=== PATIENT | female | born 1945 | race Caucasian/White ===

== ENCOUNTER 2016-10-08 04:56 | Emergency (ER) | payer BC ==
[2016-10-08 05:18] VITALS: TEMP 97.3; BMI 31.8
[2016-10-08] MEDS ORDERED: AMOX TR/POT CLAV 875MG/125MG TABLETS (FP) PO ONE (05:45)
[2016-10-08] MEDS ORDERED: MECLIZINE HCL 25 MG TABLET (FP) PO ONE (05:45)
--- NOTE | 2016-10-08 05:48 | PDOC ---
History of Present Illness - General Chief Complaint: Nausea Stated Complaint: NAUSEA/DIZZINESS Time Seen by Provider: 10/08/16 05:20 - History of Present Illness Initial Comments: 10/08/16 05:54 Patient is a 71 year old female with a history of HTN, HLD, and hypothyroidism who presents with a chief complaint of nausea and dizziness. The patient reports that she woke up 1 hour ago in a cold sweat with the room spinning around herself. She attempted to make her way to the bathroom, but had to crawl due to the room spinning and her nausea at which time she called EMS to present to the ED today. She states that she has never had anything like this before. She notes that her left ear has been feeling full since she got some excess water in it and has been having a ringing sensation in the left ear since earlier this morning. She denies any fevers, chills, chest pain, SOB, weakness or vision changes. Past History - Past Medical History Allergies/Adverse Reactions: Allergies Allergy/AdvReac Type Severity Reaction Status Date / Time No Known Allergies Allergy Verified 10/08/16 05:25 Home Medications: Ambulatory Orders Amox-Tr/K Cl [Augmentin - 875Mg Tablet] 1 tab PO BID #14 tablet 10/08/16 - Psycho/Social/Smoking Cessation Hx Suicidal Ideation: No Smoking History: Current every day smoker Have you smoked in the past 12 months: Yes Number of Cigarettes Smoked Daily: 12 Information on smoking cessation initiated: No Hx Alcohol Use: No Drug/Substance Use Hx: No Review of Systems - Review of Systems Constitutional: No: Chills, Fever HEENTM: Yes: Tinnitus. No: Recent change in vision, Ear Discharge, Hearing Loss Respiratory: No: Cough, Shortness of Breath Cardiac (ROS): No: Chest Pain, Lightheadedness ABD/GI: Yes: Nausea. No: Constipated, Diarrhea, Vomiting : No: Dysuria Integumentary: No: Rash Neurological: No: Headache, Numbness, Tingling, Weakness *Physical Exam - Vital Signs Last Vital Signs Temp Pulse Resp BP Pulse Ox 97.3 F L 59 L 18 127/67 97 10/08/16 05:11 10/08/16 05:11 10/08/16 05:11 10/08/16 05:11 10/08/16 05:11 - Physical Exam Comments: 10/08/16 06:01 General Appearance: Nourished. No Apparent Distress HEENT: EOMI, SHAN, Slightly bulging left TM with dull light reflex. Normal right TM No Pharyngeal Erythema, Tonsillar Exudate, Tonsillar Erythema Respiratory/Chest: Lungs Clear, Normal Breath Sounds. No Crackles, Rales, Rhonchi, Wheezing Cardiovascular: Regular Rhythm, Regular Rate. No Murmur, Gallop/S3, Gallop/S4 Gastrointestinal/Abdominal: Normal Bowel Sounds, Soft. No Guarding, Rebound, Tenderness Extremity: Normal Capillary Refill Integumentary: Normal Color, Dry, Warm Neurologic: inspector electromechanical II-XII NML intact, Fully Oriented, Alert, Normal Mood/Affect, Normal Response, Finger to Nose ED Treatment Course - LABORATORY CBC & Chemistry Diagram: 10/08/16 06:00 10/08/16 07:20 Medical Decision Making - Medical Decision Making 10/08/16 06:02 Patient is a 71 year old female who presents with dizziness and nausea. Given her history and physical exam, her symptoms seem most consistent with left otitis media causing a peripheral vertigo. The patient's symptoms were sudden onset and have resolved here in the ED which is more consistent with a peripheral vertigo as the cause of her dizziness and nausea. We will obtain a cbc, bmp, and cardiac enzymes to evaluate for any metabolic abnormalities or ACS as the cause of her nausea and dizziness. We will treat her with meclazine and a dose of Augmentin as well as zofran and reevaluate. 10/08/16 06:54 Patient signed out to Dr. Rosas. Pending laboratory results. *DC/Admit/Observation/Transfer Diagnosis at time of Disposition: Otitis media Qualifiers: Otitis media type: unspecified Chronicity: unspecified Laterality: unspecified laterality Qualified Code(s): H66.90 - Otitis media, unspecified, unspecified ear - Discharge Dispostion Disposition: HOME Condition at time of disposition: Improved - Prescriptions Prescriptions: Amox-Tr/K Cl [Augmentin - 875Mg Tablet] 1 tab PO BID #14 tablet - Referrals Referrals: Theodore Tapia MD [Primary Care Provider] - - Patient Instructions Printed Discharge Instructions: Middle Ear Infection Additional Instructions: You were seen because you had an issue with your balance. We saw that you have a slight infection of your right ear that we have given you antibiotics for. Again, this infection is in your middle ear and flushing your ear will not help. Please follow up with your primary care physician within a week or two. Please return to the ED if your ears do not get better in a few days or you get fevers, chills, reddening of your ears, fluid draining from your ears, or other concerning symptoms. - Attestations Physician Attestion: 10/10/16 06:53 I, Dr. Warren Eli, attest that this document has been prepared under my direction and personally reviewed by me in its entirety. I further attest, that it accurately reflects all work, treatment, procedures and medical decision -making performed by me.
[2016-10-08] MEDS ORDERED: ONDANSETRON 4 MG/2 ML VIAL IVPUSH ONE (05:50)
--- NOTE | 2016-10-08 05:50 | PDOC ---
Attending Attestation - Resident Resident Name: Warren Eli - ED Attending Attestation I have performed the following: I have examined & evaluated the patient, The case was reviewed & discussed with the resident, I agree w/resident's findings & plan, Exceptions are as noted - HPI HPI: 10/08/16 05:48 Agree with the resident's HPI as documented in the electronic medical record. - Physicial Exam PE: 10/08/16 05:48 Agree with the resident's physical examination as documented in the electronic medical record. - Medical Decision Making 10/08/16 05:48 71-year-old female with history of and hypothyroid disease presents to the emergency department with acute onset of nausea and vertiginous symptoms as well as tinnitus in the left ear; she reports getting water in her left ear a few days ago. Her left TM appears to be dull and bulging. Differential diagnosis includes but is not limited to: Acute otitis media, peripheral vertigo , vasovagal response, ACS, electrolyte abnormality, toxic/metabolic derangement. Plan: 1. EKGshows sinus bradycardia with first-degree AV block and no acute ST segment changes. 2. Labs 3. Symptomatic relief with meclizine 4. Antiemetics 5. Augmentin for otitis media 6. Observe and reevaluate
[2016-10-08] MEDS ORDERED: AMOX TR/POT CLAV 875MG/125MG TABLETS (FP) ONE (05:51)
[2016-10-08] MEDS ORDERED: MECLIZINE HCL 25 MG TABLET (FP) ONE (05:51)
[2016-10-08] MEDS ORDERED: ONDANSETRON 4 MG/2 ML VIAL ONE (05:52)
[2016-10-08 06:22] LABS: BASOPHIL 0.6 % (0-2.0); EOSINOPHIL 2.1 % (0-4.5); MCH 29.8 pg (25.7-33.7); MCHC 33.2 g/dl (32.0-36.0); MEAN CELL VOLUME 89.8 fl (80-96); MEAN PLT VOLUME 8.7 fl (7.5-11.1); NEUTROPHILS 72.6 % (42.8-82.8); PLATELET COUNT 283 K/MM3 (134-434); RDW 13.1 % (11.6-15.6); WHITE BLOOD COUNT 11.3 K/mm3 (4.0-10.0)
--- NOTE | 2016-10-08 07:23 | PDOC ---
*Physical Exam - Vital Signs Last Vital Signs Temp Pulse Resp BP Pulse Ox 97.3 F L 56 L 18 127/67 100 10/08/16 05:11 10/08/16 05:18 10/08/16 05:11 10/08/16 05:11 10/08/16 05:18 ED Treatment Course - LABORATORY CBC & Chemistry Diagram: 10/08/16 06:00 10/08/16 07:20 - ADDITIONAL ORDERS Additional order review: Laboratory Results 10/08/16 10/08/16 06:00 06:00 Sodium Cancelled Potassium Cancelled Chloride Cancelled Carbon Dioxide Cancelled Anion Gap Cancelled BUN Cancelled Creatinine Cancelled Random Glucose Cancelled Calcium Cancelled Phosphorus Cancelled Magnesium Cancelled Creatine Kinase Cancelled Troponin I Cancelled 10/08/16 06:00 RBC 4.80 MCV 89.8 MCHC 33.2 RDW 13.1 MPV 8.7 Neutrophils % 72.6 Lymphocytes % 17.7 Monocytes % 7.0 Eosinophils % 2.1 Basophils % 0.6 - Medications Given in the ED: ED Medications Discontinued Medications Generic Name Dose Route Start Last Admin Trade Name Mathewq PRN Reason Stop Dose Admin Amoxicillin/Clavulanate Potassium 1 tab 10/08/16 05:45 10/08/16 06:06 Augmentin - 875mg Tablet PO 10/08/16 05:46 1 tab ONCE ONE Administration Meclizine HCl 50 mg 10/08/16 05:45 10/08/16 06:06 Antivert - PO 10/08/16 05:46 50 mg ONCE ONE Administration Ondansetron HCl 4 mg 10/08/16 05:50 10/08/16 06:06 Zofran Injection IVPUSH 10/08/16 05:51 4 mg ONCE ONE Administration Medical Decision Making - Medical Decision Making Patient signed out to me in an efficient manner by Dr. Eli in a stable disposition with expected discharge home pending any abnormal lab values. She has received a dose of Augmentin, Meclizine, and Zofran with good symptomatic relief. 10/08/16 07:19 10/08/16 08:44 Labs only significant for a slight WBC to 11.3 but patient is afebrile with other VSS. We will discharge her on Augmentin 875 BID for 7 days. 10/08/16 08:45 10/08/16 08:49 *DC/Admit/Observation/Transfer Diagnosis at time of Disposition: Otitis media - Discharge Dispostion Disposition: HOME Condition at time of disposition: Improved Admit: No - Prescriptions Prescriptions: Amox-Tr/K Cl [Augmentin - 875Mg Tablet] 1 tab PO BID #14 tablet - Referrals Referrals: Theodore Tapia MD [Primary Care Provider] - - Patient Instructions Printed Discharge Instructions: Middle Ear Infection Additional Instructions: You were seen because you had an issue with your balance. We saw that you have a slight infection of your right ear that we have given you antibiotics for. Again, this infection is in your middle ear and flushing your ear will not help. Please follow up with your primary care physician within a week or two. Please return to the ED if your ears do not get better in a few days or you get fevers, chills, reddening of your ears, fluid draining from your ears, or other concerning symptoms.
[2016-10-08 07:26] VITALS: PULSE 70
[2016-10-08 07:44] VITALS: BP 142/74
[2016-10-08 08:19] LABS: ANION GAP 6 (8-16); CALCIUM 8.8 mg/dL (8.5-10.1); CO2 26 mmol/L (21-32); CREATININE 0.8 mg/dL (0.55-1.02); GLUCOSE,RANDOM 101 mg/dL (74-106); MAGNESIUM 2.2 mg/dL (1.8-2.4)
[2016-10-08 08:23] LABS: CPK 81 IU/L (26-192); TROPONIN I 0.02 ng/ml (0.00-0.05)
--- NOTE | 2016-10-08 12:19 | EKG ---
Test Reason : Blood Pressure : / mmHG Vent. Rate : 055 BPM Atrial Rate : 055 BPM P-R Int : 230 ms QRS Dur : 094 ms QT Int : 460 ms P-R-T Axes : 055 021 048 degrees QTc Int : 440 ms SINUS BRADYCARDIA WITH FIRSTDEGREE AV BLOCK LEFT ARTIAL ABNORMALITY NO PREVIOUS ECGS AVAILABLE CLINICAL CORRELATION IS RECOMMENDED Confirmed by GELY WEINBERG MD ([id number]) on 10/08/2016 12:19:20 PM Referred By: Confirmed By:GELY WEINBERG MD
== END 2016-10-08 09:19 | disposition home or self-care (01) ==
LOC: JER 04:56
PROC: 3E033GC Introduction of Other Therapeutic Substance into Peripheral Vein, Percutaneous Approach (ICD-10-PCS; principal; 2016-10-08)
DX: H81.392 Other peripheral vertigo, left ear (principal); H66.92 Otitis media, unspecified, left ear; I10 Essential (primary) hypertension; E03.9 Hypothyroidism, unspecified; E78.00 Pure hypercholesterolemia, unspecified; F17.210 Nicotine dependence, cigarettes, uncomplicated
CPT/HCPCS: 36415; 80048; 83735; 84100; 84484; 85025; 93005; 93010; 99285-25

== ENCOUNTER 2016-12-05 08:07 | Observation (INO) | payer BC ==
--- NOTE | 2016-12-05 08:43 | PDOC ---
History of Present Illness - General Chief Complaint: Diarrhea Stated Complaint: DIARRHEA (PCP SENT) Time Seen by Provider: 12/05/16 08:41 - History of Present Illness Initial Comments: 12/05/16 08:43 Ms. Alcocer is a 71 yo female with a significant past medical history of HTN who presents to the emergency department on advice of PCP for admission for suspected c. diff. Per patient she has had 4 weeks of diarrhea - her PCP had proscribed flagyl without relief of symptoms. Ms. Alcocer says that she has had watery or loose diarrhea on and off over this time period without any other symptoms. The patient denies chest pain, shortness of breath, headache and dizziness. Denies fever, chills, nausea, vomit, and constipation. Denies dysuria, frequency , urgency and hematuria. Allergies: NKDA Past surgical history: Left ovarian cyst removal Social history: 50 pack year smoking history PMD - Theodore Tapia Past History - Past Medical History Allergies/Adverse Reactions: Allergies Allergy/AdvReac Type Severity Reaction Status Date / Time No Known Allergies Allergy Verified 12/05/16 08:27 Home Medications: Ambulatory Orders Fenofibrate Nanocrystallized [Triglide] 160 mg PO DAILY 12/05/16 Levothyroxine [Synthroid -] 150 mcg PO DAILY 12/05/16 Lisinopril/Hydrochlorothiazide [Lisinopril-Hctz 10-12.5 mg Tab] 1 each PO DAILY 12/05/16 Metoprolol Succinate [Toprol Xl -] 50 mg PO DAILY 12/05/16 HTN: Yes Thyroid Disease: Yes - Immunization History Immunization Up to Date: Yes - Suicide/Smoking/Psychosocial Hx Smoking History: Current every day smoker Have you smoked in the past 12 months: Yes Number of Cigarettes Smoked Daily: 20 Information on smoking cessation initiated: No Hx Alcohol Use: No Drug/Substance Use Hx: No Review of Systems - Review of Systems Comments:: 12/05/16 08:43 GENERAL/CONSTITUTIONAL: No fever or chills. No weakness. HEAD, EYES, EARS, NOSE AND THROAT: No change in vision. No ear pain or discharge. No sore throat. CARDIOVASCULAR: No chest pain or shortness of breath RESPIRATORY: No cough, wheezing, or hemoptysis. GASTROINTESTINAL: +4 week history of intermittent loose and watery stools. No nausea, vomiting, or constipation. GENITOURINARY: No dysuria, frequency, or change in urination. MUSCULOSKELETAL: No joint or muscle swelling or pain. No neck or back pain. SKIN: No rash NEUROLOGIC: No headache, vertigo, loss of consciousness, or change in strength/ sensation. ENDOCRINE: No increased thirst. No abnormal weight change HEMATOLOGIC/LYMPHATIC: No anemia, easy bleeding, or history of blood clots. ALLERGIC/IMMUNOLOGIC: No hives or skin allergy. *Physical Exam - Vital Signs Last Vital Signs Temp Pulse Resp BP Pulse Ox 98.0 F 72 18 141/73 98 12/05/16 08:28 12/05/16 08:28 12/05/16 08:28 12/05/16 08:28 12/05/16 08:28 - Physical Exam Comments: 12/05/16 08:43 GENERAL: Awake, alert, and fully oriented, in no acute distress HEAD: No signs of trauma, normocephalic, atraumatic EYES: PERRLA, EOMI, sclera anicteric, conjunctiva clear ENT: Auricles normal inspection, hearing grossly normal, nares patent, oropharynx clear without exudates. Moist mucosa NECK: Normal ROM, supple, no lymphadenopathy, JVD, or masses LUNGS: No distress, speaks full sentences, clear to auscultation bilaterally HEART: Regular rate and rhythm, normal S1 and S2, no murmurs, rubs or gallops, peripheral pulses normal and equal bilaterally. ABDOMEN: Soft, nontender, normoactive bowel sounds. No guarding, no rebound. No masses EXTREMITIES: Normal inspection, Normal range of motion, no edema. No clubbing or cyanosis. NEUROLOGICAL: Cranial nerves II through XII grossly intact. Normal speech, normal gait, no focal sensorimotor deficits SKIN: Warm, Dry, normal turgor, no rashes or lesions noted. Medical Decision Making - Medical Decision Making 12/05/16 09:29 Patient presented on advice of Dr. Tapia for admission for suspected c. diff. Dr. Tapia consulted immediately who requested admission for gastroenteritis and dehydration. Patient denies any symptoms other than diarrhea. Patient admitted for continued workup. *DC/Admit/Observation/Transfer Diagnosis at time of Disposition: Dehydration, Viral gastroenteritis - Discharge Dispostion Admit: Yes - Referrals Referrals: Theodore Tapia MD [Primary Care Provider] -
--- NOTE | 2016-12-05 08:45 | PDOC ---
Attending Attestation - Resident Resident Name: Kendrick Maldonado - HPI HPI: 12/05/16 10:24 Pt presents to the ED after sent in by PMD for diarrhea unrelieved by flagyl. - Physicial Exam PE: 12/05/16 10:31 Agree with above exam. Abdomen is non tender. - Medical Decision Making 12/05/16 10:33 pt presents to the ED complaining of diarrhea that has been persistent despite flagyl. Sent in for admisison by Dr. Toribio. Will admit, give gentle IV hydratipon and check labs
[2016-12-05] MEDS ORDERED: SODIUM CHLORIDE 1,000 ML IV STA (09:01)
[2016-12-05 09:44] LABS: EOSINOPHIL 2.6 % (0-4.5); MCH 30.4 pg (25.7-33.7); MCHC 34.1 g/dl (32.0-36.0); MEAN CELL VOLUME 89.1 fl (80-96); MEAN PLT VOLUME 8.6 fl (7.5-11.1); NEUTROPHILS 63.9 % (42.8-82.8); PLATELET COUNT 309 K/MM3 (134-434); WHITE BLOOD COUNT 11.7 K/mm3 (4.0-10.0)
[2016-12-05 09:45] LABS: URINE APPEARANCE SLCLOUDY; URINE BILIRUBIN NEGATIVE (NEGATIVE); URINE BLOOD NEGATIVE (NEGATIVE); URINE COLOR YELLOW; URINE GLUCOSE (UA) NEGATIVE (NEGATIVE); URINE KETONE NEGATIVE (NEGATIVE); URINE LEUK ESTERASE NEGATIVE (NEGATIVE); URINE NITRITE NEGATIVE (NEGATIVE); URINE PROTEIN NEGATIVE (NEGATIVE); URINE UROBILINOGEN NEGATIVE mg/dL (0.2-1.0)
[2016-12-05] MEDS ORDERED: METRONIDAZOLE 500 MG PREMIXED 100 ML IVPB SCH (10:00)
[2016-12-05] MEDS ORDERED: ASPIRIN 81 MG CHEWABLE TABLETS PO ONE (10:15)
[2016-12-05 10:18] LABS: ALBUMIN 3.6 g/dl (3.4-5.0); ANION GAP 7 (8-16); CO2 24 mmol/L (21-32); CREATININE 0.8 mg/dL (0.55-1.02); GLUCOSE,RANDOM 93 mg/dL (74-106); SGOT/AST 17 U/L (15-37); SGPT/ALT 18 U/L (12-78)
[2016-12-05 10:19] LABS: ALK PHOS 84 U/L (45-117); BILIRUBIN,TOTAL 0.6 mg/dL (0.2-1.0); TOT PROT 7.5 g/dl (6.4-8.2)
[2016-12-05 10:24] LABS: THYROID STIMULATING HORMONE 0.99 uIU/ml (0.358-3.74)
[2016-12-05] MEDS ORDERED: ASPIRIN 81 MG CHEWABLE TABLETS ONE (10:28)
[2016-12-05] MEDS ORDERED: LISINOPRIL 5 MG TABLET (FP) ONE (10:29)
[2016-12-05] MEDS ORDERED: METOPROLOL SUCCINATE 50 MG TAB.SR.24H (FP) ONE (10:29)
[2016-12-05] MEDS: ASPIRIN COATED 81 MG TABLET.EC PO SCH (10:34)
[2016-12-05] MEDS: METOPROLOL SUCCINATE 50 MG TAB.SR.24H (FP) PO SCH (10:34)
[2016-12-05] MEDS: LISINOPRIL 10 MG TABLET (FP) PO SCH (10:34)
[2016-12-05] MEDS ORDERED: METRONIDAZOLE 500 MG PREMIXED 100 ML IVPB ONE (10:39)
--- NOTE | 2016-12-05 10:42 | HP ---
Admitting History and Physical - Admission Chief Complaint: antione montoya 2 wks despite flagl po weak History Source: Patient Limitations to Obtaining History: No Limitations - Past Medical History Pulmonary: Yes: COPD Gastrointestinal: Yes: Other (diarea) ...: No Dermatology: Yes: Psoriasis - Past Surgical History Past Surgical History: Yes: None (lt ov out) - Smoking History Smoking history: Current every day smoker Have you smoked in the past 12 months: Yes Aproximately how many cigarettes per day: 20 - Alcohol/Substance Use Hx Alcohol Use: No History of Substance Use: reports: None - Social History Usual Living Arrangement: Yes: Other () ADL: Independent Home Medications - Allergies Allergies/Adverse Reactions: Allergies Allergy/AdvReac Type Severity Reaction Status Date / Time No Known Allergies Allergy Verified 12/05/16 08:27 - Home Medications Home Medications: Ambulatory Orders Fenofibrate Nanocrystallized [Triglide] 160 mg PO DAILY 12/05/16 Levothyroxine [Synthroid -] 150 mcg PO DAILY 12/05/16 Lisinopril/Hydrochlorothiazide [Lisinopril-Hctz 10-12.5 mg Tab] 1 each PO DAILY 12/05/16 Metoprolol Succinate [Toprol Xl -] 50 mg PO DAILY 12/05/16 Family Disease History - Family Disease History Family History: Unremarkable Review of Systems - Review of Systems Constitutional: reports: Other (diarea) Eyes: reports: No Symptoms HENT: reports: No Symptoms Neck: reports: No Symptoms Cardiovascular: reports: No Symptoms Respiratory: reports: SOB on Exertion Gastrointestinal: reports: No Symptoms, Diarrhea Breasts: reports: No Symptoms Reported Musculoskeletal: reports: No Symptoms Integumentary: reports: No Symptoms Neurological: reports: No Symptoms Endocrine: reports: No Symptoms Hematology/Lymphatic: reports: No Symptoms Psychiatric: reports: No Symptoms Physical Examination Vital Signs: Vital Signs Temperature 98.0 F 12/05/16 08:28 Pulse Rate 72 12/05/16 08:28 Respiratory Rate 18 12/05/16 08:28 Blood Pressure 141/73 12/05/16 08:28 O2 Sat by Pulse Oximetry (%) 98 12/05/16 08:28 Constitutional: Yes: No Distress Eyes: Yes: WNL HENT: Yes: WNL Neck: Yes: WNL Cardiovascular: Yes: WNL Respiratory: Yes: WNL Gastrointestinal: Yes: Soft, Hyperactive Bowel Sounds, Tenderness (mild tender) Renal/: Yes: WNL Breast(s): Yes: WNL Musculoskeletal: Yes: WNL Extremities: Yes: WNL Edema: No Peripheral Pulses WNL: Yes Integumentary: Yes: WNL Neurological: Yes: WNL ...Motor Strength: WNL Psychiatric: Yes: WNL Labs: CBC, BMP 12/05/16 09:21 Problem List - Problems (1) DM (diabetes mellitus) Code(s): E11.9 - TYPE 2 DIABETES MELLITUS WITHOUT COMPLICATIONS Qualifiers: Diabetes mellitus type: type 2 Diabetes mellitus complication status: without complication (2) Hypertension Code(s): I10 - ESSENTIAL (PRIMARY) HYPERTENSION (3) Hypothyroid Code(s): E03.9 - HYPOTHYROIDISM, UNSPECIFIED (4) COPD (chronic obstructive pulmonary disease) Code(s): J44.9 - CHRONIC OBSTRUCTIVE PULMONARY DISEASE, UNSPECIFIED Assessment/Plan iv flagyl chk stool cbc in am f/u gi and id imodium
[2016-12-05] MEDS ORDERED: LOPERAMIDE HCL 1 MG/5 ML UNIT DOSE CUP PO ONE (10:46)
--- NOTE | 2016-12-05 12:52 | EKG ---
Test Reason : Blood Pressure : / mmHG Vent. Rate : 057 BPM Atrial Rate : 057 BPM P-R Int : 206 ms QRS Dur : 092 ms QT Int : 428 ms P-R-T Axes : 022 015 036 degrees QTc Int : 416 ms SINUS BRADYCARDIA OTHERWISE NORMAL ECG WHEN COMPARED WITH ECG OF 08-OCT-2016 05:12, NO SIGNIFICANT CHANGE WAS FOUND Confirmed by JOSEPHINE GOMEZ MD ([id number]) on 12/05/2016 12:52:33 PM Referred By: Confirmed By:JOSEPHINE GOMEZ MD
[2016-12-05] MEDS: SODIUM CHLORIDE 1,000 ML IV SCH ×2 (15:15→22:38)
--- NOTE | 2016-12-05 17:29 | PN ---
Progress Note (short form) - Note Progress Note: ID consult dictated imp/reccd 71 year old female with one month history of nonbloody diarrhea- several times every morning and then intermittently throught the day no fevers no travel no pet no weight loss no cramps no prior abdominal surgery- has had ooperectomy in the past recent med change- started on lisinopril-hctz no recent antibiotics prior to this took 7 days of metronidazole with no improvement diarrhea- would collect stools for wbc, culture, ova and parasite and cdiff may need imaging if diarrhea persists GI to see d/w Dr Tapia would hold antibiotics at this time Problem List - Problems (1) Diarrhea Code(s): R19.7 - DIARRHEA, UNSPECIFIED
[2016-12-05 17:47] VITALS: BMI 33.3
--- NOTE | 2016-12-06 02:26 | CONS ---
DATE OF CONSULTATION: 12/05/2016 REQUESTING PROVIDER: Theodore Tapia MD HISTORY: This is a 71-year-old female who has a 4-week history of diarrhea, nonbloody. She reports multiple bowel movements in the morning followed by intermittent diarrhea throughout the rest of the day. She has had no weight loss. She has no cramps with the diarrhea. She has had no fevers or chills. She took a course of Flagyl for 1 week during this illness without any improvement. She has no history of any travel. She has no pets. She has had no prior episodes of diarrhea. She has not recently been on any antibiotics. She lives with her mother here in [place] and she works in [place]. She has no unusual food preferences, though during the summer she did eat sushi several times. Recent medication change is notable for her recalling being started on lisinopril/hydrochlorothiazide at about the time this started. She has had no abdominal surgery, except she did have an oophorectomy in the remote past. PAST MEDICAL HISTORY: Notable for COPD and hypothyroidism as well as hypertension and hyperlipidemia. SURGICAL HISTORY: Notable for oophorectomy. FAMILY HISTORY: Noncontributory. SOCIAL HISTORY: She is . She has no kids. She is currently living with her elderly mother here in [place]. 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 REVIEW OF SYSTEMS: As per HPI. She has no shortness of breath. She has no abdominal pain or chest pain. Her weight has been stable. ALLERGIES: She has no known drug allergies. MEDICATIONS: As an outpatient include fenofibrate, levothyroxine, lisinopril, hydrochlorothiazide, and metoprolol. PHYSICAL EXAMINATION: General: She is awake and alert. Vital signs: Temperature is 98.5, pulse is 59, blood pressure is 120/69, respiratory rate is 18. She is saturating 100%. HEENT: She is normocephalic. Eyes are anicteric. Neck: Supple. Lungs: Clear to auscultation. Heart: Regular rate and rhythm. Abdomen: Soft and nontender. Extremities: Without edema. LABORATORY: Notable for a white count of 11.7. Hemoglobin is normal. Platelets are normal. BUN is 14 and creatinine is 0.8. Urinalysis is negative. IN SUMMARY: This is a 71-year-old woman with diarrhea for 1 month. I would collect stool for white cells, culture, ova and parasites, and clostridium difficile. She may need imaging if the diarrhea persists as well as possible future endoscopy. GI is going to see her. The case was discussed with Dr. Tapia. I would hold antibiotics at this time until a diagnosis can be established. Patient is aware of all of the above. CHINYERE SNYDER M.D. [id number]
[2016-12-06 07:54] LABS: ALK PHOS 72 U/L (45-117); ANION GAP 6 (8-16); BILIRUBIN,TOTAL 0.3 mg/dL (0.2-1.0); CO2 23 mmol/L (21-32); CREATININE 0.7 mg/dL (0.55-1.02); GLUCOSE,RANDOM 85 mg/dL (74-106); SGOT/AST 16 U/L (15-37); SGPT/ALT 15 U/L (12-78); TOT PROT 6.1 g/dl (6.4-8.2)
[2016-12-06 09:26] LABS: MCH 30.8 pg (25.7-33.7); MCHC 34.3 g/dl (32.0-36.0); MEAN CELL VOLUME 89.8 fl (80-96); PLATELET COUNT 262 K/MM3 (134-434); RDW 12.9 % (11.6-15.6); WHITE BLOOD COUNT 9.9 K/mm3 (4.0-10.0)
--- NOTE | 2016-12-06 10:03 | PN ---
Progress Note (short form) - Note Progress Note: she feels well still intermittent diarrhea Vital Signs Period Temp Pulse Resp BP Sys/Medrano Pulse Ox Last 24 Hr 97.6 F-98.7 F 54-65 17-20 89-148/46-73 100-100 cor-rrr lungs clear abd soft,nt ext no edema CBC, BMP 12/06/16 06:15 12/06/16 06:15 cdiff toxin positive/antigen positive! a/p diarrhea- cdiff positive did not have any response to po flagyl, would suggest 10 day course of po vancomycin if symptoms persist should f/u with GI Problem List - Problems (1) Diarrhea Code(s): R19.7 - DIARRHEA, UNSPECIFIED
[2016-12-06 10:07] VITALS: BP 134/62; PULSE 58; TEMP 98
[2016-12-06] MEDS: METOPROLOL SUCCINATE 50 MG TAB.SR.24H (FP) PO SCH (10:30)
[2016-12-06] MEDS: ASPIRIN COATED 81 MG TABLET.EC PO SCH (10:30)
[2016-12-06] MEDS: LISINOPRIL 10 MG TABLET (FP) PO SCH (10:30)
--- NOTE | 2016-12-06 11:46 | PN ---
Progress Note, Physician Chief Complaint: pt less diarea c diff pos ag and ab since was tx w flagl out pt already will now need vanco 250 qid x 7 days appt w friday 1200noon - Current Medication List Current Medications: Active Medications Aspirin (Ecotrin -) 81 mg PO DAILY [facility] Last Admin: 12/06/16 10:30 Dose: 81 mg Lisinopril (Prinivil) 10 mg PO DAILY [facility] Last Admin: 12/06/16 10:30 Dose: 10 mg Metoprolol Succinate (Toprol Xl -) 50 mg PO DAILY [facility] Last Admin: 12/06/16 10:30 Dose: 50 mg Vancomycin HCl (Vancomycin Oral Solution) 125 mg PO Q6HPO [facility] - Objective Vital Signs: Vital Signs Temperature 98.0 F 12/06/16 10:05 Pulse Rate 58 L 12/06/16 10:05 Respiratory Rate 18 12/06/16 10:05 Blood Pressure 134/62 12/06/16 10:05 O2 Sat by Pulse Oximetry (%) 100 12/06/16 02:39 Labs: CBC, BMP 12/06/16 06:15 12/06/16 06:15 Problem List - Problems (1) DM (diabetes mellitus) Code(s): E11.9 - TYPE 2 DIABETES MELLITUS WITHOUT COMPLICATIONS Qualifiers: Diabetes mellitus type: type 2 Diabetes mellitus complication status: without complication (2) Hypertension Code(s): I10 - ESSENTIAL (PRIMARY) HYPERTENSION (3) Hypothyroid Code(s): E03.9 - HYPOTHYROIDISM, UNSPECIFIED (4) COPD (chronic obstructive pulmonary disease) Code(s): J44.9 - CHRONIC OBSTRUCTIVE PULMONARY DISEASE, UNSPECIFIED
[2016-12-06] MEDS ORDERED: VANCOMYCIN 250 MG/5 ML ORAL SOLUTION PO SCH (12:00)
== END 2016-12-06 13:14 | disposition home or self-care (01) ==
LOC: JER 08:07 → JERBED 08:59 → J7W 16:55
PROVIDERS: ADMIT Family Medicine; ATTEND Family Medicine
PROC: 3E03329 Introduction of Other Anti-infective into Peripheral Vein, Percutaneous Approach (ICD-10-PCS; principal; 2016-12-05)
PROC: 3E0337Z Introduction of Electrolytic and Water Balance Substance into Peripheral Vein, Percutaneous Approach (ICD-10-PCS; 2016-12-05)
DX: A04.7 Enterocolitis due to Clostridium difficile (principal); E86.0 Dehydration; A08.4 Viral intestinal infection, unspecified; I10 Essential (primary) hypertension; E03.9 Hypothyroidism, unspecified; F17.210 Nicotine dependence, cigarettes, uncomplicated; E11.9 Type 2 diabetes mellitus without complications; J44.9 Chronic obstructive pulmonary disease, unspecified
CPT/HCPCS: 36415; 80048; 80053; 81003; 83690; 84443; 85025; 85027; 87045; 87046; 87205; 87324; 87449; 93005; 93010; 99285-25; G0378

== ENCOUNTER 2017-02-01 11:02 | Emergency (ER) | payer BC ==
[2017-02-01 11:11] VITALS: TEMP 98; BMI 31.8
--- NOTE | 2017-02-01 11:48 | PDOC ---
History of Present Illness - General Chief Complaint: Pain Stated Complaint: PCP SENT Time Seen by Provider: 02/01/17 11:33 History Source: Patient Exam Limitations: No Limitations - History of Present Illness Initial Comments: 02/01/17 11:44 Patient is a 71-year-old female with history of hypothyroidism, hypertension sent in by Dr. Theodore Tapia for rule out of diverticulitis. Patient was seen in the office this morning, had right lower quadrant tenderness which patient reports has resolved since arrival to emergency department patient reports pain was worse when having a bowel movement this morning. Has been afebrile. Denies any nausea, vomiting or diarrhea and no recent constipation. Had normal bowel movement this morning. Patient with history in November 2016 with C. difficile. Past Medical History: [Denies]. Allergies: No known allergies Medications: [Synthroid, Cipro with hydrochlorothiazide, metoprolol, Triglide] Family History: Non-contributory Social History: One pack per day, no alcohol use, or IVDU Vital signs on arrival are [notable for pulse of 67.] Review of Systems GENERAL/CONSTITUTIONAL: [No fever or chills. No weakness. No weight change.] HEAD, EYES, EARS, NOSE AND THROAT: [No change in vision. No ear pain or discharge. No sore throat. ] CARDIOVASCULAR: [No chest pain or shortness of breath.] RESPIRATORY: [No cough, wheezing, or hemoptysis.] GASTROINTESTINAL: [No nausea, vomiting, diarrhea or constipation. No rectal bleeding. Right lower quadrant pain] GENITOURINARY: [No dysuria, frequency, or change in urination.] MUSCULOSKELETAL: [No joint or muscle swelling or pain. No neck or back pain.] SKIN: [No rash or easy bruising.] NEUROLOGIC: [No headache, vertigo, loss of consciousness, or loss of sensation.] PSYCHIATRIC: [No depression or anxiety.] ENDOCRINE: [No increased thirst. No abnormal weight change.] HEMATOLOGIC/LYMPHATIC: [No anemia, easy bleeding, or history of blood clots.] ALLERGIC/IMMUNOLOGIC: [No hives or skin allergy. No latex allergy.] Physical Exam: GENERAL: [The patient is awake, alert, and fully oriented, in no acute distress. ] HEAD: [Normal with no signs of trauma.] EYES: [Pupils equal, round and reactive to light, extraocular movements intact, sclera anicteric, conjunctiva clear.] ENT: [Ears normal, nares patent, oropharynx clear without exudates. Moist mucous membranes. No uvula deviation] NECK: [Normal range of motion, supple without lymphadenopathy, JVD, or masses.] LUNGS: [Breath sounds equal, clear to auscultation bilaterally. No wheezes, and no crackles.] HEART: [Regular rate and rhythm, normal S1 and S2 without murmur, rub or gallop. ] ABDOMEN: [Soft, tender to right lower quadrant with normal active bowel sounds. Guarding and rebound noted to right lower quadrant,. No masses. No bruising or abrasions] RECTAL : [Guaiac negative, normal rectal tone.] MUSCULOSKELETAL: [Normal range of motion, no edema. No clubbing or cyanosis. No cords, erythema, or tenderness. No CVA Tenderness with fist.] NEUROLOGICAL: [Cranial nerves II through XII grossly intact. Normal speech, normal gait.] PSYCH: [Normal mood, normal affect.] SKIN: [Warm, Dry, normal turgor, no rashes or lesions noted.] Past History - Past Medical History Allergies/Adverse Reactions: Allergies Allergy/AdvReac Type Severity Reaction Status Date / Time No Known Allergies Allergy Verified 02/01/17 11:05 Home Medications: Ambulatory Orders Fenofibrate Nanocrystallized [Triglide] 160 mg PO DAILY 12/05/16 Levothyroxine [Synthroid -] 150 mcg PO DAILY 12/05/16 Lisinopril/Hydrochlorothiazide [Lisinopril-Hctz 10-12.5 mg Tab] 1 each PO DAILY 12/05/16 Metoprolol Succinate [Toprol XL -] 50 mg PO DAILY 12/05/16 Anemia: No Asthma: No Cancer: No Cardiac Disorders: No CVA: No COPD: No CHF: No Dementia: No Diabetes: No GI Disorders: Yes Disorders: No HTN: Yes Hypercholesterolemia: No Liver Disease: No Seizures: No Thyroid Disease: Yes - Surgical History Abdominal Surgery: No Appendectomy: No Cardiac Surgery: No Cholecystectomy: No Lung Surgery: No Neurologic Surgery: No Orthopedic Surgery: No - Immunization History Immunization Up to Date: Yes - Suicide/Smoking/Psychosocial Hx Smoking History: Current every day smoker Have you smoked in the past 12 months: Yes Number of Cigarettes Smoked Daily: 20 Information on smoking cessation initiated: No Hx Alcohol Use: No Drug/Substance Use Hx: No Substance Use Type: None Hx Substance Use Treatment: No *Physical Exam - Vital Signs Last Vital Signs Temp Pulse Resp BP Pulse Ox 98.0 F 67 15 126/72 97 02/01/17 11:05 02/01/17 11:05 02/01/17 11:05 02/01/17 11:05 02/01/17 11:05 ED Treatment Course - LABORATORY CBC & Chemistry Diagram: 02/01/17 11:58 02/01/17 11:58 Medical Decision Making - Medical Decision Making 02/01/17 11:48 A/P: Patient here for rule out diverticulitis. CBC, CMP, urinalysis, CT scan abdomen and pelvis. 02/01/17 13:26 Dr. Theodore Tapia to see patient. Dispo pending CT scan. Elevated WBC with no shift. Laboratory Results - last 24 hr 02/01/17 02/01/17 02/01/17 11:58 11:58 12:19 WBC 14.3 H D RBC 4.96 Hgb 15.2 D Hct 44.9 MCV 90.4 MCH 30.7 MCHC 34.0 RDW 12.7 Plt Count 296 MPV 9.0 Neutrophils % 62.6 Lymphocytes % 27.2 Monocytes % 6.7 Eosinophils % 2.3 Basophils % 1.2 Sodium 139 Potassium 4.4 Chloride 107 Carbon Dioxide 26 Anion Gap 6 L BUN 13 Creatinine 1.0 D Creat Clearance w eGFR 54.50 Random Glucose 95 Calcium 9.1 Total Bilirubin 0.7 D AST 14 L ALT 19 D Alkaline Phosphatase 107 D Total Protein 7.8 D Albumin 3.5 Lipase 96 Urine Color Ltyellow Urine Appearance Slcloudy Urine pH 5.0 Ur Specific [place] 1.011 Urine Protein Negative Urine Glucose (UA) Negative Urine Ketones Negative Urine Blood Negative Urine Nitrite Negative Urine Bilirubin Negative Urine Urobilinogen Negative 02/01/17 16:[address] Theodore Tapia requesting seen [address] scan demonstrated increased size of multicystic left adnexal mass since 01/20/2016, development of predominantly solid right adnexal mass with no evidence of diverticulitis or acute pathology within the abdomen or pelvis. Dr. Theodore Tapia has requested that we call Dr. Wang to discuss. Dr. Wang requested for patient to follow up as outpatient in office on Friday. Will follow-up with the CA-125. Patient states that she does not need pain medication upon discharge and will follow-up also with her doctor who performed her sister on the left ovary in [facility] Dr. Townsend. I discussed the physical exam findings, ancillary test results and final diagnoses with the patient. I answered all of the patient's questions. The patient was satisfied with the care received and felt comfortable with the discharge plan and treatment plan. 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 Including pain, fever, nausea vomiting constipation or diarrhea. *DC/Admit/Observation/Transfer Diagnosis at time of Disposition: Ovarian mass, right - Discharge Dispostion Disposition: HOME Condition at time of disposition: Stable Admit: No - Referrals Referrals: Gregg Odell MD [Staff Physician] - Theodore Tapia MD [Primary Care Provider] - (Friday at 1 pm. ) - Patient Instructions Additional Instructions: Please follow up in the office of Dr. Correa on Friday. If any increased pain, nausea, vomiting, fever or any concerns return to the ER. - Post Discharge Activity
[2017-02-01 12:04] LABS: BASOPHIL 1.2 % (0-2.0); EOSINOPHIL 2.3 % (0-4.5); MCH 30.7 pg (25.7-33.7); MEAN CELL VOLUME 90.4 fl (80-96); NEUTROPHILS 62.6 % (42.8-82.8); PLATELET COUNT 296 K/MM3 (134-434); RDW 12.7 % (11.6-15.6); WHITE BLOOD COUNT 14.3 K/mm3 (4.0-10.0)
[2017-02-01 12:27] LABS: URINE APPEARANCE SLCLOUDY; URINE BILIRUBIN NEGATIVE (NEGATIVE); URINE BLOOD NEGATIVE (NEGATIVE); URINE COLOR LTYELLOW; URINE GLUCOSE (UA) NEGATIVE (NEGATIVE); URINE KETONE NEGATIVE (NEGATIVE); URINE NITRITE NEGATIVE (NEGATIVE); URINE PROTEIN NEGATIVE (NEGATIVE); URINE UROBILINOGEN NEGATIVE mg/dL (0.2-1.0)
[2017-02-01 12:34] LABS: ALBUMIN 3.5 g/dl (3.4-5.0); ALK PHOS 107 U/L (45-117); ANION GAP 6 (8-16); BILIRUBIN,TOTAL 0.7 mg/dL (0.2-1.0); CALCIUM 9.1 mg/dL (8.5-10.1); CO2 26 mmol/L (21-32); GLUCOSE,RANDOM 95 mg/dL (74-106); SGOT/AST 14 U/L (15-37); SGPT/ALT 19 U/L (12-78); TOT PROT 7.8 g/dl (6.4-8.2)
--- NOTE | 2017-02-01 13:52 | PDOC ---
*Physical Exam - Vital Signs Last Vital Signs Temp Pulse Resp BP Pulse Ox 98.0 F 67 15 126/72 97 02/01/17 11:05 02/01/17 11:05 02/01/17 11:05 02/01/17 11:05 02/01/17 11:05 ED Treatment Course - LABORATORY CBC & Chemistry Diagram: 02/01/17 11:58 02/01/17 11:58 - ADDITIONAL ORDERS Additional order review: Laboratory Results 02/01/17 02/01/17 12:19 11:58 Sodium 139 Potassium 4.4 Chloride 107 Carbon Dioxide 26 Anion Gap 6 L BUN 13 Creatinine 1.0 D Creat Clearance w eGFR 54.50 Random Glucose 95 Calcium 9.1 Total Bilirubin 0.7 D AST 14 L ALT 19 D Alkaline Phosphatase 107 D Total Protein 7.8 D Albumin 3.5 Lipase 96 Urine Color Ltyellow Urine Appearance Slcloudy Urine pH 5.0 Ur Specific [place] 1.011 Urine Protein Negative Urine Glucose (UA) Negative Urine Ketones Negative Urine Blood Negative Urine Nitrite Negative Urine Bilirubin Negative Urine Urobilinogen Negative 02/01/17 11:58 RBC 4.96 MCV 90.4 MCHC 34.0 RDW 12.7 MPV 9.0 Neutrophils % 62.6 Lymphocytes % 27.2 Monocytes % 6.7 Eosinophils % 2.3 Basophils % 1.2 Medical Decision Making - Medical Decision Making 02/01/17 13:52 I reviewed the case of the mid-level practitioner and was available for consultation while in the emergency department *DC/Admit/Observation/Transfer Diagnosis at time of Disposition: Ovarian mass, right - Discharge Dispostion Disposition: HOME Condition at time of disposition: Stable - Referrals Referrals: Gregg Odell MD [Staff Physician] - Theodore Tapia MD [Primary Care Provider] - (Friday at 1 pm. ) - Patient Instructions Additional Instructions: Please follow up in the office of Dr. Correa on Friday. If any increased pain, nausea, vomiting, fever or any concerns return to the ER. - Post Discharge Activity
[2017-02-01 14:35] LABS: URINE LEUK ESTERASE Negative (NEGATIVE)
[2017-02-01 17:16] VITALS: BP 150/80; PULSE 78
== END 2017-02-01 17:20 | disposition home or self-care (01) ==
LOC: JER 11:02
DX: N83.8 Other noninflammatory disorders of ovary, fallopian tube and broad ligament (principal); I10 Essential (primary) hypertension; E03.9 Hypothyroidism, unspecified
CPT/HCPCS: 36415; 74177-TC; 80053; 81003; 83690; 85025; 86304; 87086; 99282-25

== ENCOUNTER 2017-02-28 12:27 | Day surgery (SDC) | payer BC, OTHER ==
[2017-02-27 08:58] VITALS: BMI 31.8
[2017-02-28] MEDS ORDERED: ceFAZolin SODIUM 1 GM VIAL ONE (13:20)
[2017-02-28] MEDS ORDERED: oxyCODONE HCL 5 MG TABLET PO PRN (14:52)
[2017-02-28] MEDS ORDERED: ONDANSETRON 4 MG/2 ML VIAL IVPUSH PRN ×2 (14:52→19:12)
[2017-02-28] MEDS ORDERED: LACTATED RINGERS SOLUTION 1,000 ML IV SCH ×2 (15:00→19:15)
[2017-02-28] MEDS ORDERED: LIDOCAINE 1%/EPI 1:100000 (20 ML MULTI DOSE VIAL) ONE (15:08)
[2017-02-28] MEDS ORDERED: BUPIVACAINE HCL/PF 0.5% (5MG/ML) 10 ML VIAL ONE (15:08)
[2017-02-28] MEDS ORDERED: INDOCYANINE GREEN 25 MG/10 ML VIAL IVPUSH ONE (15:08)
--- NOTE | 2017-02-28 15:38 | HP ---
History & Physical Update - History History: No Change - Physical Physical: No Change - Assessment Assessment: No Change - Plan Plan: No Change
[2017-02-28] MEDS ORDERED: MIDAZOLAM HCL 2 MG/2 ML SINGLE DOSE VIAL ONE (15:53)
[2017-02-28] MEDS ORDERED: SODIUM CHLORIDE 0.9% P/F 10 ML VIAL IJ ONE (15:54)
[2017-02-28] MEDS ORDERED: ceFAZolin SODIUM 1 GM VIAL IVPB ONE (16:01)
[2017-02-28] MEDS ORDERED: DEXAMETHASONE SOD PHOSPHATE 4 MG/1 ML VIAL ONE (16:18)
[2017-02-28] MEDS ORDERED: BUPIVACAINE HCL/PF 0.5% (5MG/ML) 10 ML VIAL IJ ONE (17:02)
[2017-02-28] MEDS ORDERED: ROCURONIUM BROMIDE 50 MG/5 ML VIAL ONE (17:21)
[2017-02-28] MEDS ORDERED: KETOROLAC TROMETHAMINE 30 MG/1 ML VIAL ONE (19:11)
[2017-02-28] MEDS ORDERED: PROMETHAZINE HCL 25 MG/1 ML VIAL IVPUSH PRN (19:12)
[2017-02-28] MEDS ORDERED: KETOROLAC TROMETHAMINE 30 MG/1 ML VIAL IVPUSH ONE (19:15)
--- NOTE | 2017-02-28 19:28 | OP ---
Operative Note - Note: Operative Date: 02/28/17 Pre-Operative Diagnosis: Bilateral adnexal masses, h/o mucinous borderline ovarian tumor, h/o LSO Operation: Robotic assisted total hysterectomy, RSO, radical excision of left pelvic mass, appendectomy Findings: 10 cm right adn mass, left adnexal mass, densely adherent to cul desac and left pelvic sidewall and posterior uterus, normal appendix, normal liver/upper abdomen. Post-Operative Diagnosis: Same as Pre-op Surgeon: Hue Pryor Commissions Specialist: Gregg Odell Anesthesiologist/SENIOR WEB ENGINEER: Luca Boyle Anesthesia: General, Local Specimens Removed: uterus, cervix, right tube and ovary, left tube, left adnexal cyst, appendix, washings Estimated Blood Loss (mls): 200 Drains & Tubes with Location: none Operative Report Dictated: Yes
[2017-02-28] MEDS ORDERED: PROCHLORPERAZINE INJECTION 10 MG/2 ML VIAL IVPB PRN (19:29)
[2017-02-28] MEDS ORDERED: ONDANSETRON 4 MG/2 ML VIAL IVPB PRN (19:29)
[2017-02-28] MEDS ORDERED: diphenhydrAMINE HCL 25 MG CAPSULE (FP) PO PRN (19:29)
[2017-02-28] MEDS ORDERED: HYDROmorphone HCL CARPU-JECT 1 MG/1 ML DISP.SYRIN IVPUSH PRN (19:29)
[2017-02-28] MEDS ORDERED: ACETAMINOPHEN 325 MG TABLET (FP) PO PRN (19:30)
[2017-02-28] MEDS ORDERED: KETOROLAC TROMETHAMINE 15 MG/ML VIAL IVPUSH SCH (19:30)
[2017-02-28] MEDS ORDERED: HYDROmorphone HCL CARPU-JECT 2 MG/1 ML DISP.SYRIN ONE (20:08)
[2017-03-01] MEDS: KETOROLAC TROMETHAMINE 30 MG/1 ML VIAL IVPUSH SCH ×3 (03:35→15:00)
[2017-03-01] MEDS ORDERED: LEVOTHYROXINE NA 150 MCG TABLET PO SCH (07:00)
[2017-03-01 08:12] LABS: HEMATOCRIT 38.7 % (32.4-45.2); HEMOGLOBIN 12.9 GM/dL (10.7-15.3); MCH 29.9 pg (25.7-33.7); MCHC 33.3 g/dl (32.0-36.0); MEAN CELL VOLUME 89.8 fl (80-96); MEAN PLT VOLUME 9.2 fl (7.5-11.1); PLATELET COUNT 242 K/MM3 (134-434); RBC 4.31 M/mm3 (3.60-5.2); RDW 13.1 % (11.6-15.6)
[2017-03-01 08:47] LABS: ANION GAP 9 (8-16); BLOOD UREA NITROGEN 15 mg/dL (7-18); CALCIUM 7.6 mg/dL (8.5-10.1); CHLORIDE 108 mmol/L (98-107); CO2 22 mmol/L (21-32); CREATININE 0.9 mg/dL (0.55-1.02); GLUCOSE,RANDOM 93 mg/dL (74-106); POTASSIUM 3.9 mmol/L (3.5-5.1); SODIUM 139 mmol/L (136-145)
[2017-03-01] MEDS ORDERED: METOPROLOL SUCCINATE 50 MG TAB.SR.24H (FP) PO SCH (10:00)
[2017-03-01] MEDS ORDERED: ENOXAPARIN NA (PORCINE) 40 MG/0.4 ML DISP.SYRIN SQ SCH (10:00)
--- NOTE | 2017-03-01 10:23 | PN ---
Progress Note (short form) - Note Progress Note: Anesthesia post op note POD#1, S/P Robotic assisted total hysterectomy, RSO, radical excision of left pelvic mass, appendectomy. VSS. No apparent post anesthesia complications. Signed off.
[2017-03-01 16:00] VITALS: PULSE 62; TEMP 98.2
[2017-03-01 16:01] VITALS: BP 120/66
--- NOTE | 2017-03-02 09:45 | OP ---
DATE OF OPERATION: 02/28/2017 PREOPERATIVE DIAGNOSIS: Bilateral adnexal masses, history of left salpingo-oophorectomy for a borderline mucinous ovarian tumor. 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 SURGEON: Hue Pryor MD CO-SURGEON: Gregg Odell MD ANESTHESIA: General endotracheal and local. ANESTHESIOLOGIST: ESTIMATED BLOOD LOSS: 200 mL. COMPLICATIONS: None. INDICATIONS: This is a 71-year-old with history of a borderline mucinous ovarian tumor. On CT scan of the abdomen and pelvis, she was found to have an 8.7-cm multicystic mass in the left adnexa and a right solid mass, 9.3 x 6.1 x 7.8 cm. No lymphadenopathy, no ascites. CA-125 was normal at 14. The patient denied history of postmenopausal vaginal bleeding. She was could regarding surgical management. The risks, benefits, indications and alternatives were discussed with the patient. All questions were answered. Informed consent was signed. FINDINGS: Intraoperative findings included a large 10-cm right adnexal mass, densely adherent to the right pelvic side wall, an 8-weeks' sized uterus which appeared globular and boggy, and a left adnexal mass which was cystic, posterior to the uterus and densely adherent to the left pelvic side wall. There appeared to be a remnant of the left fallopian tube. The patient had undergone a previous left oophorectomy. Upper abdominal exam appeared normal. The liver edge was smooth. Diaphragms were smooth. The appendix appeared normal. The rest of the intestine appeared normal. There was no ascites. DESCRIPTION OF PROCEDURE: The patient was taken to the operating room and placed in the dorsal supine position. General endotracheal anesthesia was obtained without difficulty. She was then placed in the dorsal lithotomy position in [place] stirrups and prepped and draped in the normal sterile fashion. A Montoya catheter was placed in the bladder. A speculum was placed in the vagina. The cervix was grasped with a single-tooth tenaculum and a [id number] stitch of 0 Vicryl was placed. The cervix was gently dilated and clear serous fluid was noted to emanate from the endocervix. The Cequensare uterine manipulator was then placed, and tenaculum and speculum were then removed. Then 5 mL of 0.25% Marcaine was injected into the umbilicus and an 8-cm was made with the scalpel while tenting the anterior abdominal wall. The Veress needle was inserted intra-abdominally, and the abdomen was insufflated with CO2 gas. An 8-mm trocar was then placed. Intra-abdominal placement was confirmed by direct visualization with the laparoscope. An additional 8-mm trocar was placed in the left mid-quadrant and an 8-mm trocar was placed in the right mid-quadrant and a 5-mm AirSeal port was placed in the left lower quadrant. All trocars were placed under direct visualization after injecting 0.25% Marcaine. A thorough exam of the abdomen and pelvis revealed the above noted findings. The da Luis robot was then docked without difficulty. Peritoneal washings were taken using normal saline. The right retroperitoneum was opened. The right ureter was identified and dissected away from the mass. The right infundibulopelvic ligament was clamped, cauterized and transected. This was carried through the right broad ligament and the pelvic peritoneum was dissected away from the pelvic mass. The vesicouterine peritoneum anteriorly was opened, dissecting the bladder off the anterior uterus and cervix. The left retroperitoneum was opened. Please note that there was cystic fluid noted from the left adnexa, which was densely adherent to the posterior uterus and to the left pelvic side wall. The left fallopian tube was visible in the left adnexa. This was all densely adherent, likely from prior oophorectomy. The left retroperitoneum was opened. The left ureter was identified. The left infundibulopelvic ligament was clamped, cauterized and transected. This was carried through the broad ligament to encompass this left adnexal cyst. This cystic mass was dissected off the sigmoid mesentery. The uterine arteries bilaterally were skeletonized. They were clamped, cauterized and transected. The cardinal ligaments were serially clamped, cauterized and transected. The uterosacral ligaments were clamped, cauterized and transected. A vaginotomy incision was made circumferentially around the cervix. The right utero-ovarian ligament was clamped, cauterized and transected, and the right adnexal mass was from the uterus. The uterus was able to be brought through the vagina without difficulty. The right adnexal mass was continued to be dissected free from the pelvic side wall. It was then placed in an Endo Catch bag and handed off the field. There was still a portion of cystic mass stuck to the left pelvic side wall, where it was densely adherent. The colon was noted to be well away from this, and excision in the mesentery was performed. Care was taken to avoid the iliac vessels and ureter as well. The remainder of the cyst wall was able to be excised. At this point the appendix was identified. The mesoappendix was clamped, cauterized and transected to the base of the appendix. A 45-mm Endo KATHLEEN was brought through the vagina with a blue load, and the base of the appendix was clamped, stapled and transected. The appendix was brought through the vagina. The base of the appendix appeared very hemostatic and the staple line intact. The vaginal cuff was closed in a running continuous fashion using 2-0 V-Loc suture. Surgicel was placed on the vaginal cuff for added assurance. The pelvis was thoroughly irrigated with 3 L of sterile water. The pelvis was noted to be hemostatic. All instruments were removed from the patient's abdomen. The da Luis robot was then undocked. We flattened the patient and aspirated all free fluid from the irrigation. All trocars were removed from the patient's abdomen. Sponge, needle and instrument counts were correct x2. The skin incisions were closed with 4-0 Monocryl and Dermabond was applied. The patient was extubated and transferred in stable condition to the PACU. Sandra [id number]
--- NOTE | 2017-03-05 11:55 | PATH ---
Cytology Non-Gynecological Report Patient Name: JOAO WADE [facility]. Rec. #: [id number] /Age/Gender: 1945 (Age: 71) / F Account: [id number] Location: [facility] SURGICAL Taken: 02/28/2017 Received: 03/04/2017 Reported: 03/05/2017 Physicians: Hue Pryor MD Specimen(s) Received PELVIC WASHINGS Clinical History Bilateral adnexal masses, prior history of Borderline mucinous tumor Final Diagnosis PELVIC WASHING FOR CYTOLOGY: SATISFACTORY FOR EVALUATION. NO MALIGNANT CELLS IDENTIFIED. MESOTHELIAL CELLS PRESENT. Comment: See concurrent material [id number]. Electronically Signed Unique Lynch M.D. Gross Description Approximately 50 cc of clear fluid received in a tube. Two cytofunnels prepared.
--- NOTE | 2017-03-05 15:09 | PATH ---
Surgical Pathology Report Patient Name: JOAO WADE [facility] Rec. #: [id number] /Age/Gender: 1945 (Age: 71) / F Account: [id number] Location: [facility] SUR[facility] Taken: 02/28/2017 Received: 03/01/2017 Reported: 03/05/2017 Physicians: Hue Pryor MD Specimen(s) Received A: UTERUS AND CERVIX B: RIGHT OVARY MASS C: APPENDIX Clinical History Bilateral adnexal mass Intraoperative Consult Diagnosis A. Cervix and uterus, frozen section: No carcinoma identified in motor vehicle representative section. B. Adnexal mass, frozen section: Mucinous neoplasm, at least borderline in this material. Shantel Plummer M.D., 02/28/17 Final Diagnosis A. UTERUS AND CERVIX, ROBOTIC ASSISTED TOTAL HYSTERECTOMY (FS): ATROPHIC ENDOMETRIUM. MYOMETRIUM WITH SMALL INTRAMURAL LEIOMYOMA(TA). CERVIX WITH NABOTHIAN CYSTS. SEROSAL SURFACE WITH ADHESIONS. B. OVARY AND FALLOPIAN TUBE, RIGHT, OOPHORECTOMY(FS): MUCINOUS BORDERLINE TUMOR WITH MICROINVASION (< 5 MM STROMAL INVASION). TUMOR MEASURES 9.5 X 9 CM (GROSS MEASUREMENT). FALLOPIAN TUBE WITH MUCINOUS METAPLASIA AND PARATUBAL CYST. C. APPENDIX, APPENDECTOMY: VERMIFORM APPENDIX WITHOUT SIGNIFICANT PATHOLOGIC FINDINGS. Electronically Signed Unique Lynch M.D. Addendum Reported: 03/06/2017 Addendum Diagnosis Ovarian Carcinoma: Surgical Pathology Cancer Case Summary Based on AJCC/UICC TNM, 7th edition Lymph Node Sampling _X_ Not performed Specimen Integrity Right Ovary _X__ Capsule intact (present specimen) Left Ovary _X__ Capsule intact (per outside report) Primary Tumor Site __X__ Cannot be assessed Ovarian Surface Involvement __X__Absent Tumor Size Right Ovary Greatest dimension: 9.5 X 9 cm (present specimen) Left Ovary Greatest dimension: 18 X11 cm (per outside report) Histologic Type: _X__ Mucinous, borderline tumor, intestinal type with microinvasion (<5 MM stromal invasion) Histologic Grade World Health Organization (WHO) Grading System _X__ G1: Well differentiated Implants _X__ Not applicable/not sampled Extent of Involvement of Other Tissues/Organs _X_ Right ovary _X_ Involved _X__ Left ovary _X_ Involved (per outside report) _X__ Right fallopian tube _X_ Not involved _X__ Left fallopian tube _X_ Cannot be assessed _X__ Omentum _X_ Not applicable _X__ Uterus _X_ Not involved _X__ Peritoneum _X_ Not applicable _X_ Other organs/tissues: Appendix _X_ Not involved Lymph-Vascular Invasion _X__ Not identified Pathologic Staging (pTNM [FIGO]) Primary Tumor :pT1b Regional Lymph Nodes: pNx Distant Metastasis: pMx Comment: Provided pathology report of the Left Ovary with Borderline Mucinous tumor ([id number]) from [facility] [place], [place] incorporated in the Pathologic (T) staging. Current pelvic washing is negative ([id number]). Unique Lynch M.D. Gross Description A. Received fresh labeled "uterus/cervix," is a 99 g uterus with an attached cervix and no attached adnexa. The serosa is reese-ness with fibrous adhesions and a focal defect on the posterior aspect of the specimen. The specimen measures 10 cm from superior to inferior, 7 cm from left to right and 2.5 cm from anterior to posterior. The cervix measures 3.3 cm in length and 1.8 cm in diameter. The ectocervix is pink-reees, smooth and glistening. The endocervix is unremarkable. The endometrial cavity measures 5 cm in length and 1.2 cm from cornu to cornu. The endometrium is reese and averages 0.1 cm in thickness. The myometrium displays multifocal small intramural nodules, measuring up to 0.8 cm in greatest dimension. The myometrium is pink-reese and averages 1.2 cm in thickness. A motor vehicle representative section is submitted for frozen section. Director Telecommunications sections are submitted in 8 cassettes as follows: 1-frozen section residue; 2-anterior cervix; 3-posterior cervix; 4-9-trgadqkv endomyometrium; 2-8-tahatkecp endomyometrium; 8-intramural nodules. B. Received fresh labeled "right ovary," is a 244 g, 9.5 x 9.0 x 4.5 cm ovary. The outer surface is reese ness with focal defects. The mass appears to be invading through the outer surface of the ovary. There is a 6.4 cm in length portion of fallopian tube attached to the outer surface of the ovary. There is a 1.2 cm greatest dimension paratubal cyst present. Sectioning of the fallopian tube reveals an unremarkable lumen. Sectioning of the ovary reveals a reese, variegated, necrotic mass. No normal ovarian parenchyma is identified. A motor vehicle representative section is submitted for frozen section. Director Telecommunications sections are submitted in 12 cassettes as follows: 1-frozen section residue; 8-2-cuemxbjjl tube; 3-77-flrqxsmtrqsdqf ovary. C. Received in formalin labeled "appendix," is a 4 cm in length vermiform appendix with a stapled margin of resection and abundant attached periappendiceal fat. The outer surface is reese-oviedo and smooth. Sectioning reveals a dilated lumen containing brown fecal material. The wall of the appendix averages 0.1 cm in thickness. The specimen is entirely submitted in 2 cassettes. 03/04/201703/04/2017
== END 2017-03-01 17:00 | disposition home or self-care (01) ==
LOC: JASU-SURG 12:27 → J3W 21:21 → JASU-SURG 03-01 17:00
PROVIDERS: ATTEND Obstetrics & Gynecology Gynecologic Oncology
PROC: 0UT5FZZ Resection of Right Fallopian Tube, Via Natural or Artificial Opening With Percutaneous Endoscopic Assistance (ICD-10-PCS; 2017-02-28)
PROC: 0UT9FZZ Resection of Uterus, Via Natural or Artificial Opening With Percutaneous Endoscopic Assistance (ICD-10-PCS; principal; 2017-02-28 15:00)
PROC: 0UT0FZZ Resection of Right Ovary, Via Natural or Artificial Opening With Percutaneous Endoscopic Assistance (ICD-10-PCS; 2017-02-28 15:00)
DX: D25.1 Intramural leiomyoma of uterus (principal); N85.8 Other specified noninflammatory disorders of uterus; N88.8 Other specified noninflammatory disorders of cervix uteri; D39.8 Neoplasm of uncertain behavior of other specified female genital organs
CPT/HCPCS: 36415; 80048; 85027; 86850; 86900; 86901; 88108; 88304-TC; 88307-TC; 88331-TC; 94760

== ENCOUNTER 2018-08-15 14:30 | Inpatient (IN) | payer BC, OTHER ==
--- NOTE | 2018-08-15 15:54 | PDOC ---
History of Present Illness - General Chief Complaint: SIRS, Suspected/Possible Stated Complaint: SENT BY PCP Time Seen by Provider: 08/15/18 15:10 - History of Present Illness Initial Comments: Danii Alcocer is a 73yo with a PMH of HTN, HLD, and hypothyroidism, COPD, GERD, previous cdiff, recent uti who presents with persistent elevated temperatures 99 -100F at home. She says that she was diagnosed with a UTI about 3 weeks ago and prescribed amoxicilin; the UTI seems to have resolved, but she started to have diarrhea. She contacted her PMD and was started on oral vancomycin for presumed cdiff, though she states that no test was done. The diarrhea has now also resolved Ms Alcocer denies any continued symptoms at this point other than gernalized malaise and fatigue. She says that the higher her temperature is, the worse she feels. She says that she has seen her PMD, Dr Anthony Tapia, and had "every test done " to work up the fever, but "everything is normal." She was also sent to see a neighborhood coordinator, but she states that all the results were normal there as well. She called Dr Tapia this morning because she "couldn't take it anymore" and was told to present to the ED. Past History - Past Medical History Allergies/Adverse Reactions: Allergies Allergy/AdvReac Type Severity Reaction Status Date / Time No Known Allergies Allergy Verified 08/15/18 14:43 Home Medications: Ambulatory Orders Fenofibrate Nanocrystallized [Triglide] 160 mg PO DAILY 12/05/16 Levothyroxine [Synthroid -] 150 mcg PO DAILY 12/05/16 Lisinopril/Hydrochlorothiazide [Lisinopril-Hctz 10-12.5 mg Tab] 1 each PO DAILY 12/05/16 Metoprolol Succinate [Toprol XL -] 50 mg PO DAILY 12/05/16 Aspirin [ASA -] 81 mg PO DAILY 08/15/18 Omeprazole 20 mg PO DAILY 08/15/18 Vancomycin HCl [Vancocin HCl] 250 mg PO TID 08/15/18 Anemia: No Asthma: No Cancer: No Cardiac Disorders: No CVA: No COPD: No CHF: No Dementia: No Diabetes: No GI Disorders: Yes Disorders: No HTN: Yes Hypercholesterolemia: Yes Liver Disease: No Seizures: No Thyroid Disease: Yes (UNDER ACTIVE) - Surgical History Abdominal Surgery: No Appendectomy: No Cardiac Surgery: No Cholecystectomy: No Lung Surgery: No Neurologic Surgery: No Orthopedic Surgery: No - Immunization History Immunization Up to Date: Yes - Suicide/Smoking/Psychosocial Hx Smoking History: Current every day smoker Have you smoked in the past 12 months: Yes Number of Cigarettes Smoked Daily: 20 Information on smoking cessation initiated: No 'Breaking Loose' booklet given: 02/28/17 Hx Alcohol Use: No Drug/Substance Use Hx: No Substance Use Type: None Hx Substance Use Treatment: No Review of Systems - Review of Systems Comments:: General: +malaise, +fatigue, +fever HEENT: No changes in vision, no changes in hearing, no congestion, no sore throat CV: No chest pain, no palpitations, no LE edema Pulm: No SOB, no cough, no wheezing GI: No nausea or vomiting, no change in bowel habits, no melena : No frequency, no urgency, no dysuria Musc: No back pain, no joint swelling, no recent injury Skin: No rash, no lesions, no erythema Endo: No excessive thirst, no heat/cold intolerance Heme: No unusual bruising or bleeding, no swollen glands Neuro: No syncope, no numbness/tingling, no focal weakness Vasc: No claudication Psych: No recent change in mood, no SI or HI *Physical Exam - Vital Signs Last Vital Signs Temp Pulse Resp BP Pulse Ox 99.6 F 101 H 18 133/80 98 08/15/18 14:43 08/15/18 14:43 08/15/18 14:43 08/15/18 14:43 08/15/18 14:43 - Physical Exam Comments: General: Comfortable, no acute distress HEENT: PERRL, EOMI, MMM, voice normal, normal neck ROM, no LAD Cards: RRR, no murmur appreciated Pulm: Comfortable on room air, clear to auscultation bilaterally Abd: Soft, nondistended. Mild b/l suprapubic TTP Ext: Atraumatic. No LE edema. ROM intact. Vasc: Extremities WWP. Skin: Normal color, no rashes or lesions Neuro: A&Ox3, CN grossly intact, normal speech, motor/sensory grossly intact and symmetric Psych: Mood appropriate to situation ED Treatment Course - LABORATORY CBC & Chemistry Diagram: 08/15/18 15:41 08/15/18 15:41 - RADIOLOGY Radiology Studies Ordered: Category Date Time Status ABDOMEN CT WITH CONTRAST* [CT] Stat CT Scan 08/15/18 15:[address] WITH CONTRAST [CT] Stat CT Scan 08/15/18 15:53 Ordered Medical Decision Making - Medical Decision Making 08/15/18 15:57 Danii Alcocer is a 73yo with a PMH of HTN, HLD, and hypothyroidism, COPD, GERD, previous cdiff, recent uti who presents with persistent elevated temperatures 99 -100F at home. She recently had a UTI, now treated, and diarrhea (on oral vanc for presumed cdiff) but denies any current symptoms aside from malaise and fatigue. - Febrile to 100.8 rectally. Denies current symptoms, no clear source of fever other than mild TTP on abdominal exam - Sepsis order set - CT chest/abd/pelvis requested by Dr Tapia 08/15/18 17:39 - Labs notable for leukocytosis to 14 - Will send for CT 08/15/18 19:53 - CT completed. Notes right renal mass 8x4cm with local LAD concerning for renal cell carcinoma, possibly metastatic - Discussed w/ Dr Anthony Tapia. Will admit. Requesting consult to Dr Wesley Tapia - Updated Ms Alcocer, She agrees to stay Discussed with Dr Stoner. Beata Whittington PGY1 *DC/Admit/Observation/Transfer Diagnosis at time of Disposition: Right renal mass, Retroperitoneal lymphadenopathy Fever Qualifiers: Fever type: unspecified Qualified Code(s): R50.9 - Fever, unspecified - Discharge Dispostion Decision to Admit order: Yes - Referrals - Patient Instructions - Post Discharge Activity
[2018-08-15 15:56] LABS: BASO % 0.7 % (0-2.0); EOS % 1.2 % (0-4.5); HEMATOCRIT 32.7 % (32.4-45.2); HEMOGLOBIN 10.8 GM/dL (10.7-15.3); LYMPH % 21.3 % (8-40); MCH 27.6 pg (25.7-33.7); MEAN CELL VOLUME 83.6 fl (80-96); MEAN PLT VOLUME 8.2 fl (7.5-11.1); MONO % 7.3 % (3.8-10.2); NEUT % 69.5 % (42.8-82.8); RBC 3.91 M/mm3 (3.60-5.2); RDW 13.8 % (11.6-15.6); WHITE BLOOD COUNT 14.2 K/mm3 (4.0-10.0)
[2018-08-15 16:02] LABS: VENOUS PC02 35.6 mmHg (41-51); VENOUS PH 7.45 (7.31-7.41)
[2018-08-15 16:25] LABS: ALBUMIN 3.2 g/dl (3.4-5.0); ALK PHOS 115 U/L (45-117); ANION GAP 7 MMOL/L (8-16); BILIRUBIN,TOTAL 0.3 mg/dL (0.2-1); BLOOD UREA NITROGEN 13.2 mg/dL (7-18); CALCIUM 8.9 mg/dL (8.5-10.1); CHLORIDE 104 mmol/L (98-107); CO2 25 mmol/L (21-32); GLUCOSE,RANDOM 90 mg/dL (74-106); POTASSIUM 4.5 mmol/L (3.5-5.1); SGOT/AST 14 U/L (15-37); SGPT/ALT 12 U/L (13-61); SODIUM 137 mmol/L (136-145); TOT PROT 7.5 g/dl (6.4-8.2)
[2018-08-15 16:27] LABS: INR 1.25 (0.83-1.09); PROTHROMBIN TIME (PATIENT) 14.8 SEC (9.7-13.0)
[2018-08-15 16:29] LABS: ACTIVATED PTT 32.3 SECONDS (25.2-36.5)
--- NOTE | 2018-08-15 17:49 | PDOC ---
Documentation entered by Quincy De Santiago SCRIBE, acting as scribe for Barbara Stoner MD. Barbara Stoner MD: This documentation has been prepared by the Jonnathan mc Xhesika, SCRIBE, under my direction and personally reviewed by me in its entirety. I confirm that the documentation accurately reflects all work, treatment, procedures, and medical decision making performed by me. Attending Attestation - Resident Resident Name: Beata Whittington - ED Attending Attestation I have performed the following: I have examined & evaluated the patient, The case was reviewed & discussed with the resident, I agree w/resident's findings & plan, Exceptions are as noted - HPI HPI: 08/15/18 16:42 The patient is a 73 year old female, with a significant PMH of HTN, HLD, hypothyroidism, COPD, GERD, previous c diff, recent UTI who presents to the emergency department with 3 weeks of persistent fevers of 99.5 -100.5 at home. The patient states she is endorsing mild headaches and generalized weakness secondary to her symptoms. The patient states she saw her PCP, Dr. Tapia as outpatient for CT imagining, however, her insurance has not approved of the imaging which promed her arrival to the ED today. The patient denies chest pain, shortness of breath, and dizziness. Denies fever , chills, nausea, vomiting, diarrhea and constipation. Denies dysuria, frequency , urgency and hematuria. Allergies: NKDA PCP: Theodore Hernandez - Physicial Exam PE: 08/15/18 16:42 GENERAL: The patient is in no acute distress. ENT: Ears normal, nares patent, oropharynx clear without exudates. Moist mucous membranes. NECK: Normal range of motion, supple, no nuchal rigidity LUNGS: Breath sounds equal, clear to auscultation bilaterally. No wheezes, and no crackles. HEART: Regular rate and rhythm, normal S1 and S2 without murmur, rub or gallop. ABDOMEN: Soft, nontender, normoactive bowel sounds. No guarding, no rebound. No masses palpable. EXTREMITIES: Normal range of motion, no edema. NEUROLOGICAL: Cranial nerves II through XII grossly intact. Normal speech. No focal neurological deficits. SKIN: Warm, Dry, normal turgor, no rashes or lesions noted. - Medical Decision Making 08/15/18 17:42 Ms Foy is a tania 73 yo F presenting to the ER with a complaint of feeling feverish Symptoms have been present for the past 3 weeks No recent registered travel nurse has a "smokers" cough Temp range from 99.5 - 100.5 Pt denies dysuria or flank pain Pt denies diarrhea 08/15/18 17:46 EKG -NSR rate of 86 bpm, axis nml, intervals nml, no st elevation or depression 08/15/18 17:49 Laboratory Tests 08/15/18 08/15/18 08/15/18 15:41 15:41 15:41 WBC 14.2 H Hgb 10.8 Hct 32.7 INR 1.25 H BUN 13.2 Creatinine 1.0 CK-MB (CK-2) < 1.0 Troponin I 08/15/18 15:41 WBC Hgb Hct INR BUN Creatinine CK-MB (CK-2) Troponin I < 0.02 CT pending
[2018-08-15 17:56] LABS: PLATELET COUNT 476 K/MM3 (134-434)
[2018-08-15 17:57] LABS: PLATELET ESTIMATE SLT INCREASE
[2018-08-15 18:06] LABS: EPI CELLS 4.1 /HPF (0-5/HPF); HYALINE CASTS 14 /lpf (0-8); PH,URINE 5.5 (5.0-8.0); URINE APPEARANCE CLEAR; URINE BACTERIA 71.3 /hpf (NEGATIVE); URINE BILIRUBIN NEGATIVE (NEGATIVE); URINE COLOR DK YELLOW; URINE GLUCOSE (UA) NEGATIVE (NEGATIVE); URINE KETONE TRACE (NEGATIVE); URINE LEUK ESTERASE TRACE (NEGATIVE); URINE NITRITE NEGATIVE (NEGATIVE); URINE PROTEIN TRACE (NEGATIVE); URINE RBC 2 /hpf (0-4); URINE WBC 4 /hpf (0-5)
[2018-08-16 00:33] VITALS: BMI 29.6
[2018-08-16] MEDS ORDERED: PT OWN MED DRAWER 7, Y5N ONE ×2 (05:38→10:36)
[2018-08-16] MEDS ORDERED: VANCOMYCIN 250 MG/5 ML ORAL SOLUTION PO SCH (06:00)
[2018-08-16] MEDS: LEVOTHYROXINE NA 150 MCG TABLET PO SCH (06:20)
[2018-08-16 07:55] LABS: ALBUMIN 2.8 g/dl (3.4-5.0); BILIRUBIN,TOTAL 0.4 mg/dL (0.2-1); BLOOD UREA NITROGEN 9.1 mg/dL (7-18); CALCIUM 8.4 mg/dL (8.5-10.1); CREATININE 0.9 mg/dL (0.55-1.3); POTASSIUM 3.9 mmol/L (3.5-5.1); TOT PROT 6.7 g/dl (6.4-8.2)
--- NOTE | 2018-08-16 08:30 | EKG ---
Test Reason : Blood Pressure : / mmHG Vent. Rate : 086 BPM Atrial Rate : 086 BPM P-R Int : 188 ms QRS Dur : 090 ms QT Int : 362 ms P-R-T Axes : 064 027 044 degrees QTc Int : 433 ms NORMAL SINUS RHYTHM NORMAL ECG WHEN COMPARED WITH ECG OF 05-DEC-2016 09:56, VENT. RATE HAS INCREASED BY 29 BPM Confirmed by HERBIE LOVE MD ([id number]) on 08/16/2018 8:30:29 AM Referred By: Confirmed By:HERBIE LOVE MD
[2018-08-16] MEDS: HYDROCHLOROTHIAZIDE 12.5 MG CAPSULE (FP) PO SCH (10:27)
[2018-08-16] MEDS: LISINOPRIL 10 MG TABLET (FP) PO SCH (10:28)
[2018-08-16] MEDS: PANTOPRAZOLE 40 MG TABLET (FP) PO SCH (10:28)
[2018-08-16] MEDS: ASPIRIN 81 MG CHEWABLE TABLETS PO SCH (10:28)
[2018-08-16] MEDS: FENOFIBRIC ACID 135 MG CAP PO SCH (10:40)
[2018-08-16 12:22] LABS: BASO % 0.3 % (0-2.0); EOS % 1.5 % (0-4.5); HEMATOCRIT 32.8 % (32.4-45.2); HEMOGLOBIN 10.8 GM/dL (10.7-15.3); LYMPH % 21.3 % (8-40); MCH 27.3 pg (25.7-33.7); MCHC 32.9 g/dl (32.0-36.0); MEAN CELL VOLUME 82.9 fl (80-96); MEAN PLT VOLUME 8.5 fl (7.5-11.1); MONO % 7.2 % (3.8-10.2); NEUT % 69.7 % (42.8-82.8); RBC 3.96 M/mm3 (3.60-5.2); RDW 14.1 % (11.6-15.6); WHITE BLOOD COUNT 14.7 K/mm3 (4.0-10.0)
--- NOTE | 2018-08-16 12:37 | CON.ID ---
Consult - History of Present Illness History of Present Illness: 73 y.o. female with PMH of COPD, GERD, HTN, HLD, hypothyroidism presents with c/ o persistent low grade fevers and generally feeling unwell for the past several weeks. As per pt she was treated for UTI with c/o dysuria with po antibiotics about 3 wks ago with resolution of symptoms but developed severe diarrhea approximately one week later. Pt was started on Vancomycin po for presumed C.diff which she is currently taking and states diarrhea has resolved. In medical records she had C. diff colitis in 11/2016. She states she has been taking her temperatures at home and they remain mildly elevated to about 100.1F. As per pt she had outpt w/u for fever without specific findings and was also seen by a [employer] Lieutenant. Pt denies recent travel/sick contacts. In the ER she was noted to have temp of 100.8F and elevated wbc (14K). She denies current h/a, neck stiffness, SOB/cough, sore throat, audiovisual disturbances, focal weakness, urinary f/u/d, rash, abd pain/n/v/d, or any other specific symptoms. Pt states she is feeling better today. She is afebrile so far today. - History Source History Provided By: Patient - Past Medical History Pulmonary: Yes: COPD Gastrointestinal: Yes: Other (C. diff colitis 2016) Renal/: Yes: UTI ...: No Endocrine: Yes: Hypothyroidism Dermatology: Yes: Psoriasis - Past Surgical History Past Surgical History: Yes: None, Oopherectomy - Alcohol/Substance Use Hx Alcohol Use: No History of Substance Use: reports: None - Smoking History Smoking history: Current every day smoker Have you smoked in the past 12 months: Yes Aproximately how many cigarettes per day: 20 - Social History ADL: Independent Home Medications - Allergies Allergies/Adverse Reactions: Allergies Allergy/AdvReac Type Severity Reaction Status Date / Time No Known Allergies Allergy Verified 08/15/18 14:43 - Home Medications Home Medications: Ambulatory Orders Fenofibrate Nanocrystallized [Triglide] 160 mg PO DAILY 12/05/16 Levothyroxine [Synthroid -] 150 mcg PO DAILY 12/05/16 Lisinopril/Hydrochlorothiazide [Lisinopril-Hctz 10-12.5 mg Tab] 1 each PO DAILY 12/05/16 Metoprolol Succinate [Toprol XL -] 50 mg PO DAILY 12/05/16 Aspirin [ASA -] 81 mg PO DAILY 08/15/18 Omeprazole 20 mg PO DAILY 08/15/18 Vancomycin HCl [Vancocin HCl] 250 mg PO TID 08/15/18 Review of Systems - Review of Systems Constitutional: reports: Fever, Weakness Eyes: reports: No Symptoms. denies: Blind Spots, Blurred Vision, Double Vision , Eye Pain, Floaters, Photophobia, Recent Change in Vision, Other HENT: reports: No Symptoms. denies: Difficult Swallowing, Ear Discharge, Ear Pain, Epistaxis, Gingival Bleeding, Hearing Loss, Mouth Swelling, Nasal Congestion, Ocular Prosthesis, Throat Pain, Toothache, Ringing in Ears, Other Neck: reports: No Symptoms. denies: Decreased ROM, Lumps, Pain on Movement, Stiffness, Swollen Glands, Tenderness, Other Cardiovascular: reports: No Symptoms. denies: Chest Pain, Edema, Palpitations, Shortness of Breath, Other Respiratory: reports: No Symptoms. denies: Cough, Exercise Intolerance, Hemoptysis, Orthopnea, PND, Snoring, SOB, SOB on Exertion, Wheezing, Other Gastrointestinal: reports: No Symptoms. denies: Abdominal Pain, Bloating, Constipation, Diarrhea, Dysphagia, Indigestion, Melena, Nausea, Rectal Bleeding , Vomiting, Vomiting Blood, Other Genitourinary: reports: No Symptoms. denies: Burning, Discharge, Dysuria, Flank Pain, Frequency, Hematuria, Incontinence, Lesions, Menses, Pain, Testicular Mass, Testicular Pain, Testicular Swelling, Urgency, Vaginal Bleeding , Other Breasts: reports: No Symptoms Reported. denies: See HPI, Breast Implants, Discharge from Nipple, Lumps, Pain, Skin Changes, Other Musculoskeletal: reports: No Symptoms. denies: Back Pain, Crepitus, Decreased ROM, Extremity Pain, Joint Pain, Joint Swelling, Muscle Pain, Muscle Cramps, Muscle Weakness, Other Integumentary: reports: No Symptoms. denies: Blister, Bruising, Change in Color , Eczema, Erythema, Incision, Lesions, Lump, Pallor, Pruritis, Rash, Wound, Other Neurological: reports: No Symptoms. denies: Change in LOC, Change in Speech, Confusion, Dizziness, Headache, Incoordination, Numbness, Parasthesia, Pre- Existing Deficit, Seizure, Syncope, Tremors, Unsteady Gait, Weakness, Other Endocrine: reports: No Symptoms. denies: Excessive Sweating, Flushing, Increased Hunger, Increased Thirst, Intolerance to Cold, Intolerance to Heat, Unexplained Weight Gain, Unexplained Weight Loss, Other Hematology/Lymphatic: reports: No Symptoms. denies: Easily Bruised, Excessive Bleeding, Swollen Glands, Other Psychiatric: reports: No Symptoms. denies: Altered Sleep Pattern, Anxiety, Depression, Hallucinations, Panic, Paranoia, Suicidal, Other Physical Exam Vital Signs: Vital Signs Temperature 98.6 F 08/16/18 07:15 Pulse Rate 85 08/16/18 07:15 Respiratory Rate 20 08/16/18 07:15 Blood Pressure 117/67 08/16/18 07:15 O2 Sat by Pulse Oximetry (%) 99 08/16/18 00:18 Constitutional: Yes: Well Nourished, No Distress, Calm Eyes: Yes: Conjunctiva Clear, EOM Intact HENT: Yes: Atraumatic, Normocephalic Neck: Yes: Supple Cardiovascular: Yes: Regular Rate and Rhythm Respiratory: Yes: CTA Bilaterally Gastrointestinal: Yes: Normal Bowel Sounds, Soft Renal/: Yes: WNL Musculoskeletal: Yes: WNL Extremities: Yes: WNL Edema: No Integumentary: Yes: WNL Neurological: Yes: Alert, Oriented Psychiatric: Yes: Alert Labs: Laboratory Tests 08/15/18 08/15/18 08/15/18 15:41 15:41 15:41 WBC 14.2 H RBC 3.91 Hgb 10.8 Hct 32.7 MCV 83.6 MCH 27.6 MCHC 33.0 RDW 13.8 Plt Count 476 H D MPV 8.2 D Absolute Neuts (auto) 9.9 H Neutrophils % 69.5 Lymphocytes % 21.3 Monocytes % 7.3 Eosinophils % 1.2 Basophils % 0.7 Nucleated RBC % 0 Platelet Estimate Slt increase Platelet Comment Plts scanned ESR PT with INR 14.80 H INR 1.25 H PTT (Actin FS) 32.3 VBG pH POC VBG pCO2 POC VBG pO2 VBG HCO3 VBG O2 Sat (Jesus) VBG Base Excess Sodium 137 Potassium 4.5 Chloride 104 Carbon Dioxide 25 Anion Gap 7 L BUN 13.2 Creatinine 1.0 Est GFR (CKD-EPI)AfAm 64.27 Est GFR (CKD-EPI)NonAf 55.45 Random Glucose 90 Lactic Acid Calcium 8.9 Total Bilirubin 0.3 AST 14 L ALT 12 L Alkaline Phosphatase 115 Creatine Kinase 33 CK-MB (CK-2) < 1.0 Troponin I C-Reactive Protein Total Protein 7.5 Albumin 3.2 L Total Amylase Lipase TSH Urine Color Urine Appearance Urine pH Ur Specific [place] Urine Protein Urine Glucose (UA) Urine Ketones Urine Blood Urine Nitrite Urine Bilirubin Urine Urobilinogen Ur Leukocyte Esterase Urine WBC (Auto) Urine RBC (Auto) Urine Casts (Auto) U Epithel Cells (Auto) Urine Bacteria (Auto) 08/15/18 08/15/18 08/15/18 15:41 15:41 15:54 WBC RBC Hgb Hct MCV MCH MCHC RDW Plt Count MPV Absolute Neuts (auto) Neutrophils % Lymphocytes % Monocytes % Eosinophils % Basophils % Nucleated RBC % Platelet Estimate Platelet Comment ESR PT with INR INR PTT (Actin FS) VBG pH 7.45 H POC VBG pCO2 35.6 L POC VBG pO2 35.0 VBG HCO3 24.1 VBG O2 Sat (Jesus) 67.0 L VBG Base Excess 0.7 Sodium Potassium Chloride Carbon Dioxide Anion Gap BUN Creatinine Est GFR (CKD-EPI)AfAm Est GFR (CKD-EPI)NonAf Random Glucose Lactic Acid 1.1 Calcium Total Bilirubin AST ALT Alkaline Phosphatase Creatine Kinase CK-MB (CK-2) Troponin I < 0.02 C-Reactive Protein Total Protein Albumin Total Amylase Lipase TSH Urine Color Urine Appearance Urine pH Ur Specific [place] Urine Protein Urine Glucose (UA) Urine Ketones Urine Blood Urine Nitrite Urine Bilirubin Urine Urobilinogen Ur Leukocyte Esterase Urine WBC (Auto) Urine RBC (Auto) Urine Casts (Auto) U Epithel Cells (Auto) Urine Bacteria (Auto) 08/15/18 08/16/18 08/16/18 17:05 06:49 06:49 WBC RBC Hgb Hct MCV MCH MCHC RDW Plt Count MPV Absolute Neuts (auto) Neutrophils % Lymphocytes % Monocytes % Eosinophils % Basophils % Nucleated RBC % Platelet Estimate Platelet Comment ESR 101 H PT with INR INR PTT (Actin FS) VBG pH POC VBG pCO2 POC VBG pO2 VBG HCO3 VBG O2 Sat (Jesus) VBG Base Excess Sodium 138 Potassium 3.9 Chloride 107 Carbon Dioxide 23 Anion Gap 8 BUN 9.1 Creatinine 0.9 Est GFR (CKD-EPI)AfAm 73.00 Est GFR (CKD-EPI)NonAf 62.99 Random Glucose 89 Lactic Acid Calcium 8.4 L Total Bilirubin 0.4 AST 14 L ALT 10 L Alkaline Phosphatase 105 Creatine Kinase CK-MB (CK-2) Troponin I C-Reactive Protein 10.5 H Total Protein 6.7 Albumin 2.8 L Total Amylase 20 L Lipase 58 L TSH 1.28 Urine Color Dk yellow Urine Appearance Clear Urine pH 5.5 Ur Specific [place] 1.026 Urine Protein Trace Urine Glucose (UA) Negative Urine Ketones Trace H Urine Blood Negative Urine Nitrite Negative Urine Bilirubin Negative Urine Urobilinogen 1.0 Ur Leukocyte Esterase Trace Urine WBC (Auto) 4 Urine RBC (Auto) 2 Urine Casts (Auto) 14 U Epithel Cells (Auto) 4.1 Urine Bacteria (Auto) 71.3 08/16/18 12:05 WBC 14.7 H RBC 3.96 Hgb 10.8 Hct 32.8 MCV 82.9 MCH 27.3 MCHC 32.9 RDW 14.1 Plt Count 507 H MPV 8.5 Absolute Neuts (auto) 10.2 H Neutrophils % 69.7 Lymphocytes % 21.3 Monocytes % 7.2 Eosinophils % 1.5 Basophils % 0.3 Nucleated RBC % 0 Platelet Estimate Platelet Comment ESR PT with INR INR PTT (Actin FS) VBG pH POC VBG pCO2 POC VBG pO2 VBG HCO3 VBG O2 Sat (Jesus) VBG Base Excess Sodium Potassium Chloride Carbon Dioxide Anion Gap BUN Creatinine Est GFR (CKD-EPI)AfAm Est GFR (CKD-EPI)NonAf Random Glucose Lactic Acid Calcium Total Bilirubin AST ALT Alkaline Phosphatase Creatine Kinase CK-MB (CK-2) Troponin I C-Reactive Protein Total Protein Albumin Total Amylase Lipase TSH Urine Color Urine Appearance Urine pH Ur Specific [place] Urine Protein Urine Glucose (UA) Urine Ketones Urine Blood Urine Nitrite Urine Bilirubin Urine Urobilinogen Ur Leukocyte Esterase Urine WBC (Auto) Urine RBC (Auto) Urine Casts (Auto) U Epithel Cells (Auto) Urine Bacteria (Auto) Imaging - Results Cat Scan: Pending Problem List - Problems (1) Fever Code(s): R50.9 - FEVER, UNSPECIFIED Qualifiers: Fever type: unspecified Qualified Code(s): R50.9 - Fever, unspecified (2) Retroperitoneal lymphadenopathy Code(s): R59.0 - LOCALIZED ENLARGED LYMPH NODES (3) Right renal mass Code(s): N28.89 - OTHER SPECIFIED DISORDERS OF KIDNEY AND URETER (4) COPD (chronic obstructive pulmonary disease) Code(s): J44.9 - CHRONIC OBSTRUCTIVE PULMONARY DISEASE, UNSPECIFIED (5) Hypothyroid Code(s): E03.9 - HYPOTHYROIDISM, UNSPECIFIED Assessment/Plan 73 y.o. female with PMH of COPD, GERD, HTN, HLD, hypothyroidism presents with c/ o persistent low grade fevers and generally feeling unwell for the past several weeks, recently treated for UTI and subsequent diarrhea presumed to be C. diff Colitis. Has history of C. diff Colitis dx in 2017. Fever Leukocytosis Renal Mass with LAD Presumed C. diff colitis s/p UTI Hypothyroidism COPD HTN HLD -- Pt is currently stable, without diarrhea or dysuria -- Will adjust Vancomycin po dose, continue to complete course -- Monitor off of other antibiotics at this time, while monitoring wbc trend/ temps -- contact precautions, hand washing -- Workup underway to r/o Renal cell CA/mets -- F/u CT results -- repeat cbc, f/u blood culture results Will f/u Thank you
[2018-08-16 12:44] LABS: BLOOD UREA NITROGEN 10.4 mg/dL (7-18); CALCIUM 9.1 mg/dL (8.5-10.1); POTASSIUM 4.5 mmol/L (3.5-5.1)
[2018-08-16] MEDS: SODIUM CHLORIDE 1,000 ML IV SCH (13:00)
[2018-08-16 15:11] LABS: PLATELET COUNT 507 K/MM3 (134-434)
[2018-08-16] MEDS: VANCOMYCIN 250 MG/5 ML ORAL SOLUTION PO SCH (17:50)
[2018-08-16] MEDS ORDERED: ACETAMINOPHEN 325 MG TABLET (FP) PO PRN (19:10)
--- NOTE | 2018-08-16 19:10 | HP ---
Admitting History and Physical - Admission Chief Complaint: pt with no diaera now had episodes for 1 wk prior on flagly swiched to lizzie cat nocternally History Source: Patient Limitations to Obtaining History: No Limitations (? c diff) - Past Medical History Pulmonary: Yes: COPD Gastrointestinal: Yes: Other (C. diff colitis 2016) Renal/: Yes: UTI ...: No Endocrine: Yes: Hypothyroidism Dermatology: Yes: Psoriasis - Past Surgical History Past Surgical History: Yes: None, Oopherectomy - Smoking History Smoking history: Current every day smoker Have you smoked in the past 12 months: Yes Aproximately how many cigarettes per day: 20 - Alcohol/Substance Use Hx Alcohol Use: No History of Substance Use: reports: None - Social History ADL: Independent Home Medications - Allergies Allergies/Adverse Reactions: Allergies Allergy/AdvReac Type Severity Reaction Status Date / Time No Known Allergies Allergy Verified 08/15/18 14:43 - Home Medications Home Medications: Ambulatory Orders Fenofibrate Nanocrystallized [Triglide] 160 mg PO DAILY 12/05/16 Levothyroxine [Synthroid -] 150 mcg PO DAILY 12/05/16 Lisinopril/Hydrochlorothiazide [Lisinopril-Hctz 10-12.5 mg Tab] 1 each PO DAILY 12/05/16 Metoprolol Succinate [Toprol XL -] 50 mg PO DAILY 12/05/16 Aspirin [ASA -] 81 mg PO DAILY 08/15/18 Omeprazole 20 mg PO DAILY 08/15/18 Vancomycin HCl [Vancocin HCl] 250 mg PO TID 08/15/18 Family Disease History - Family Disease History Family History: Unremarkable Review of Systems - Review of Systems Constitutional: reports: Other (night temps) Eyes: reports: No Symptoms HENT: reports: No Symptoms Neck: reports: No Symptoms Cardiovascular: reports: No Symptoms Respiratory: reports: No Symptoms Gastrointestinal: reports: Diarrhea Genitourinary: reports: No Symptoms Breasts: reports: No Symptoms Reported Musculoskeletal: reports: No Symptoms Integumentary: reports: No Symptoms Neurological: reports: No Symptoms Endocrine: reports: No Symptoms Hematology/Lymphatic: reports: No Symptoms Psychiatric: reports: No Symptoms Physical Examination Vital Signs: Vital Signs Temperature 99.6 F 08/16/18 15:12 Pulse Rate 65 08/16/18 15:12 Respiratory Rate 20 08/16/18 15:12 Blood Pressure 100/55 L 08/16/18 15:12 O2 Sat by Pulse Oximetry (%) 97 08/16/18 09:00 Labs: CBC, BMP 08/16/18 12:05 08/16/18 12:05 Assessment/Plan gu and id to see pt cont all tx as is no other axt yet ? aggree contactpecautions
--- NOTE | 2018-08-16 21:12 | CONS ---
DATE OF CONSULTATION: DATE OF DICTATION: 08/16/2018 The patient is a 73-year-old female admitted via the emergency room with a history of fever and myalgia. The patient has history of COPD, high blood pressure, dyslipidemia, hypothyroidism, peptic ulcer disease. She has complaints of persistent low-grade temperature which she has taken at home. She has been feeling unwell for the past several weeks. Patient states that she has been treated for a UTI several weeks ago and she no longer has dysuria or frequency. She did develop diarrhea after her antibiotic course and was started on p.o. vancomycin. Patient was referred to a psychology associate for her low-grade temperatures. On this admission, in the emergency room, her temperature was 101, her white count was greater than 14,000. Presently, she denies any dysuria or frequency. She denies nausea or vomiting. She does have a history of an oophorectomy in the past. She denies any alcohol or tobacco use. She states that she does smoke intermittently. She denies any allergies. She is on multiple medications, including Synthroid, lisinopril, hydrochlorothiazide, Toprol XL, aspirin, Protonix, and vancomycin 250 mg p.o. t.i.d. She is also on Triglide. In the emergency room, she had a temperature of 99, her O2 saturation was also 99%. Her abdomen is soft. There is no CVA tenderness. Her bladder is not distended. Her white count is 14,000, hemoglobin 10.8, hematocrit 32.7, platelets 476. Her ESR is elevated. Her C-reactive protein is also elevated. Her liver enzymes are normal. Her urinalysis was negative for blood and negative for nitrite. A CT scan of her abdomen and pelvis with IV contrast reveals retroperitoneal lymphadenopathy. There is also what appears to be a right renal mass with some enhancement and irregular borders. IMPRESSION AT PRESENT: Possible right renal tumor. Will recommend a renal and pelvic ultrasound. Patient will also need a cystoscopy and a right retrograde pyelogram, possible right ureteroscopy with biopsy to rule out renal pelvic tumor. Will follow with you. SHANE STONE M.D. [id number]
[2018-08-17] MEDS: VANCOMYCIN 250 MG/5 ML ORAL SOLUTION PO SCH ×5 (00:08→23:51)
[2018-08-17] MEDS: LEVOTHYROXINE NA 150 MCG TABLET PO SCH (06:13)
[2018-08-17 07:02] LABS: EOS % 1.5 % (0-4.5); HEMATOCRIT 29.1 % (32.4-45.2); HEMOGLOBIN 9.8 GM/dL (10.7-15.3); LYMPH % 19.3 % (8-40); MCH 27.5 pg (25.7-33.7); MCHC 33.6 g/dl (32.0-36.0); MEAN CELL VOLUME 81.9 fl (80-96); MONO % 8.4 % (3.8-10.2); NEUT % 69.8 % (42.8-82.8); PLATELET COUNT 428 K/MM3 (134-434); RBC 3.55 M/mm3 (3.60-5.2); RDW 13.7 % (11.6-15.6); WHITE BLOOD COUNT 12.4 K/mm3 (4.0-10.0)
[2018-08-17 07:22] LABS: BLOOD UREA NITROGEN 9.9 mg/dL (7-18); CALCIUM 8.1 mg/dL (8.5-10.1); CREATININE 0.9 mg/dL (0.55-1.3); POTASSIUM 3.6 mmol/L (3.5-5.1)
[2018-08-17] MEDS: ASPIRIN 81 MG CHEWABLE TABLETS PO SCH (09:07)
[2018-08-17] MEDS: PANTOPRAZOLE 40 MG TABLET (FP) PO SCH (09:07)
[2018-08-17] MEDS: HYDROCHLOROTHIAZIDE 12.5 MG CAPSULE (FP) PO SCH (09:08)
[2018-08-17] MEDS: FENOFIBRIC ACID 135 MG CAP PO SCH (09:08)
[2018-08-17] MEDS: LISINOPRIL 10 MG TABLET (FP) PO SCH (09:08)
[2018-08-17] MEDS ORDERED: PNEUMOC 13-VAL CONJ-DIP CRM/PF 0.5 ML DISP.SYRIN IM ONE (10:00)
--- NOTE | 2018-08-17 10:21 | PN ---
Progress Note, Physician Chief Complaint: no bm yet vss gu appreciated - Current Medication List Current Medications: Active Medications Acetaminophen (Tylenol -) 650 mg PO Q4H PRN PRN Reason: FEVER Stop: 08/17/18 19:09 Aspirin (Asa -) 81 mg PO DAILY [facility] Last Admin: 08/17/18 09:07 Dose: 81 mg Fenofibric Acid (Trilipix -) 135 mg PO DAILY [facility] Last Admin: 08/17/18 09:08 Dose: 135 mg Hydrochlorothiazide (Hctz -) 12.5 mg PO DAILY [facility] Last Admin: 08/17/18 09:08 Dose: 12.5 mg Sodium Chloride (Normal Saline -) 1,000 mls @ 42 mls/hr IV ASDIR [facility] Last Admin: 08/16/18 13:00 Dose: 42 mls/hr Levothyroxine Sodium (Synthroid -) 150 mcg PO DAILY@0700 [facility] Last Admin: 08/17/18 06:13 Dose: 150 mcg Lisinopril (Prinivil) 10 mg PO DAILY [facility] Last Admin: 08/17/18 09:08 Dose: 10 mg Metoprolol Succinate (Toprol Xl -) 50 mg PO DAILY [facility] Last Admin: 08/17/18 09:08 Dose: 50 mg Pantoprazole Sodium (Protonix -) 40 mg PO DAILY [facility] Last Admin: 08/17/18 09:07 Dose: 40 mg Vancomycin HCl (Vancomycin Oral Solution) 250 mg PO Q6HPO [facility] Last Admin: 08/17/18 06:12 Dose: 250 mg - Objective Vital Signs: Vital Signs Temperature 99.2 F 08/17/18 05:00 Pulse Rate 66 08/17/18 05:00 Respiratory Rate 20 08/17/18 05:00 Blood Pressure 105/62 08/17/18 05:00 O2 Sat by Pulse Oximetry (%) 98 08/17/18 04:50 Constitutional: Yes: No Distress, Calm, Anxious Eyes: Yes: WNL HENT: Yes: WNL Neck: Yes: WNL Cardiovascular: Yes: WNL Respiratory: Yes: WNL Gastrointestinal: Yes: WNL ...Rectal Exam: Yes: Deferred Genitourinary: Yes: WNL Breast(s): Yes: WNL Musculoskeletal: Yes: WNL Extremities: Yes: WNL Edema: No Peripheral Pulses WNL: Yes Integumentary: Yes: WNL Neurological: Yes: WNL ...Motor Strength: WNL Psychiatric: Yes: WNL Labs: CBC, BMP 08/17/18 06:12 08/17/18 06:42 INR, PTT INR 1.25 (0.83-1.09) H 08/15/18 15:41 Assessment/Plan awaiting stool c diff pelvic sono renal cont tx as is ? onco if bxx malignancy chk ntumor markers
[2018-08-17] MEDS: POLYETHYLENE GLYCOL 3350 255 GM BTL PO ONE ×2 (12:14→13:42)
[2018-08-17] MEDS: SODIUM CHLORIDE 1,000 ML IV SCH (12:15)
--- NOTE | 2018-08-17 14:12 | PN ---
Progress Note, Physician History of Present Illness: patient stable no new issues has not had a bm since last 4 dys no complaint plan is for biopsy - Current Medication List Current Medications: Active Medications Acetaminophen (Tylenol -) 650 mg PO Q4H PRN PRN Reason: FEVER Stop: 08/17/18 19:09 Aspirin (Asa -) 81 mg PO DAILY [facility] Last Admin: 08/17/18 09:07 Dose: 81 mg Fenofibric Acid (Trilipix -) 135 mg PO DAILY [facility] Last Admin: 08/17/18 09:08 Dose: 135 mg Hydrochlorothiazide (Hctz -) 12.5 mg PO DAILY [facility] Last Admin: 08/17/18 09:08 Dose: 12.5 mg Sodium Chloride (Normal Saline -) 1,000 mls @ 42 mls/hr IV ASDIR [facility] Last Admin: 08/17/18 12:15 Dose: 42 mls/hr Levothyroxine Sodium (Synthroid -) 150 mcg PO DAILY@0700 [facility] Last Admin: 08/17/18 06:13 Dose: 150 mcg Lisinopril (Prinivil) 10 mg PO DAILY [facility] Last Admin: 08/17/18 09:08 Dose: 10 mg Metoprolol Succinate (Toprol Xl -) 50 mg PO DAILY [facility] Last Admin: 08/17/18 09:08 Dose: 50 mg Pantoprazole Sodium (Protonix -) 40 mg PO DAILY [facility] Last Admin: 08/17/18 09:07 Dose: 40 mg Vancomycin HCl (Vancomycin Oral Solution) 250 mg PO Q6HPO [facility] Last Admin: 08/17/18 13:37 Dose: 250 mg - Objective Vital Signs: Vital Signs Temperature 99.0 F 08/17/18 10:00 Pulse Rate 79 08/17/18 10:00 Respiratory Rate 20 08/17/18 10:00 Blood Pressure 116/61 08/17/18 10:00 O2 Sat by Pulse Oximetry (%) 96 08/17/18 10:00 Constitutional: Yes: No Distress, Calm Cardiovascular: Yes: Regular Rate and Rhythm Respiratory: Yes: Regular, CTA Bilaterally Gastrointestinal: Yes: Normal Bowel Sounds, Soft Musculoskeletal: Yes: WNL Extremities: Yes: WNL Neurological: Yes: Alert, Oriented Psychiatric: Yes: Alert, Oriented Labs: CBC, BMP 08/17/18 06:12 08/17/18 06:42 INR, PTT INR 1.25 (0.83-1.09) H 08/15/18 15:41 Assessment/Plan Problem List - Problems (1) Fever Code(s): R50.9 - FEVER, UNSPECIFIED Qualifiers: Fever type: unspecified Qualified Code(s): R50.9 - Fever, unspecified (2) Retroperitoneal lymphadenopathy Code(s): R59.0 - LOCALIZED ENLARGED LYMPH NODES (3) Right renal mass Code(s): N28.89 - OTHER SPECIFIED DISORDERS OF KIDNEY AND URETER (4) COPD (chronic obstructive pulmonary disease) Code(s): J44.9 - CHRONIC OBSTRUCTIVE PULMONARY DISEASE, UNSPECIFIED (5) Hypothyroid Code(s): E03.9 - HYPOTHYROIDISM, UNSPECIFIED Assessment/Plan 73 y.o. female with PMH of COPD, GERD, HTN, HLD, hypothyroidism presents with c/ o persistent low grade fevers and generally feeling unwell for the past several weeks, recently treated for UTI and subsequent diarrhea presumed to be C. diff Colitis. Has history of C. diff Colitis dx in 2017. Fever Leukocytosis Renal Mass with LAD Presumed C. diff colitis s/p UTI Hypothyroidism COPD HTN HLD plam no abx at the moment will repeat a esr and crp biopsy rest as per the team
--- NOTE | 2018-08-17 15:45 | PN ---
Progress Note (short form) - Note Progress Note: Pt w/ solid enhancing right renal lesion, large retroperitoneal lymph nodes. Plan: -Will need tissue biopsy. Will consult [facility] to biopsy right renal mass.
--- NOTE | 2018-08-17 18:50 | CONSULT ---
Consult Consult Specialty:: endocrine Referred by:: dr.martin stevenson Reason for Consultation:: adrenal mass - History of Present Illness Chief Complaint: headache and weakness fever History of Present Illness: 73yo with a PMH of hypothyroidism, HTN, HLD, COPD, GERD, previous cdiff, recent uti who presents with persistent elevated temperatures 99-100F at home. She says that she was diagnosed with a UTI and treated with po antibiotics, however had recent symptoms headache and fever which prompted admission found to have left adrenal mass on ct scan. - Past Medical History Pulmonary: Yes: COPD Gastrointestinal: Yes: Other (C. diff colitis 2017) Renal/: Yes: UTI ...: No Endocrine: Yes: Hypothyroidism Dermatology: Yes: Psoriasis - Past Surgical History Past Surgical History: Yes: None, Oopherectomy - Alcohol/Substance Use Hx Alcohol Use: No History of Substance Use: reports: None - Smoking History Smoking history: Current every day smoker Have you smoked in the past 12 months: Yes Aproximately how many cigarettes per day: 20 - Social History ADL: Independent Home Medications - Allergies Allergies/Adverse Reactions: Allergies Allergy/AdvReac Type Severity Reaction Status Date / Time No Known Allergies Allergy Verified 08/15/18 14:43 - Home Medications Home Medications: Ambulatory Orders Fenofibrate Nanocrystallized [Triglide] 160 mg PO DAILY 12/05/16 Levothyroxine [Synthroid -] 150 mcg PO DAILY 12/05/16 Lisinopril/Hydrochlorothiazide [Lisinopril-Hctz 10-12.5 mg Tab] 1 each PO DAILY 12/05/16 Metoprolol Succinate [Toprol XL -] 50 mg PO DAILY 12/05/16 Aspirin [ASA -] 81 mg PO DAILY 08/15/18 Omeprazole 20 mg PO DAILY 08/15/18 Vancomycin HCl [Vancocin HCl] 250 mg PO TID 08/15/18 Review of Systems - Review of Systems Constitutional: reports: Lethargy, Weakness Eyes: reports: No Symptoms HENT: reports: No Symptoms Neck: reports: No Symptoms Cardiovascular: reports: Shortness of Breath Respiratory: reports: Exercise Intolerance Gastrointestinal: reports: Bloating Genitourinary: reports: No Symptoms Musculoskeletal: reports: No Symptoms Neurological: reports: Weakness Physical Exam Vital Signs: Vital Signs Temperature 98.3 F 08/17/18 15:00 Pulse Rate 78 08/17/18 15:00 Respiratory Rate 18 08/17/18 15:00 Blood Pressure 113/59 L 08/17/18 15:00 O2 Sat by Pulse Oximetry (%) 96 08/17/18 10:00 Constitutional: Yes: Calm Eyes: Yes: EOM Intact HENT: Yes: Normocephalic Neck: Yes: Trachea Midline Cardiovascular: Yes: Regular Rate and Rhythm Respiratory: Yes: CTA Bilaterally Gastrointestinal: Yes: Normal Bowel Sounds ...Rectal Exam: Yes: Deferred Renal/: Yes: WNL Musculoskeletal: Yes: Muscle Weakness Extremities: Yes: WNL Edema: No Neurological: Yes: Alert, Oriented Labs: CBC, BMP 08/17/18 06:12 08/17/18 06:42 Problem List - Problems (1) Retroperitoneal lymphadenopathy Code(s): R59.0 - LOCALIZED ENLARGED LYMPH NODES (2) Right renal mass Code(s): N28.89 - OTHER SPECIFIED DISORDERS OF KIDNEY AND URETER (3) DM (diabetes mellitus) Code(s): E11.9 - TYPE 2 DIABETES MELLITUS WITHOUT COMPLICATIONS Qualifiers: Diabetes mellitus type: type 2 Diabetes mellitus complication status: without complication Assessment/Plan Current Active Problems adrenal adenoma Fever (Acute) Retroperitoneal lymphadenopathy (Acute) Right renal mass (Acute) Laboratory Results - last 24 hr 08/17/18 08/17/18 06:12 06:42 WBC 12.4 H RBC 3.55 L Hgb 9.8 L Hct 29.1 L MCV 81.9 MCH 27.5 MCHC 33.6 RDW 13.7 Plt Count 428 MPV 8.0 Absolute Neuts (auto) 8.6 H Neutrophils % 69.8 Lymphocytes % 19.3 Monocytes % 8.4 Eosinophils % 1.5 Basophils % 1.0 D Nucleated RBC % 0 Sodium 137 Potassium 3.6 Chloride 107 Carbon Dioxide 23 Anion Gap 7 L BUN 9.9 Creatinine 0.9 Est GFR (CKD-EPI)AfAm 73.00 Est GFR (CKD-EPI)NonAf 62.99 Random Glucose 102 Calcium 8.1 L Laboratory Results - last 24 hr 08/17/18 08/17/18 06:12 06:42 WBC 12.4 H RBC 3.55 L Hgb 9.8 L Hct 29.1 L MCV 81.9 MCH 27.5 MCHC 33.6 RDW 13.7 Plt Count 428 MPV 8.0 Absolute Neuts (auto) 8.6 H Neutrophils % 69.8 Lymphocytes % 19.3 Monocytes % 8.4 Eosinophils % 1.5 Basophils % 1.0 D Nucleated RBC % 0 Sodium 137 Potassium 3.6 Chloride 107 Carbon Dioxide 23 Anion Gap 7 L BUN 9.9 Creatinine 0.9 Est GFR (CKD-EPI)AfAm 73.00 Est GFR (CKD-EPI)NonAf 62.99 Random Glucose 102 Calcium 8.1 L plan: dexamethasone suppression test tsh free t4 continue synthroid q am
[2018-08-17] MEDS ORDERED: DEXAMETHASONE 0.5 MG TABLET PO ONE (23:00)
[2018-08-18 00:07] LABS: CARCINOEMBRYONIC ANTIGEN 4.6 ng/mL (0.0-4.7)
[2018-08-18] MEDS: VANCOMYCIN 250 MG/5 ML ORAL SOLUTION PO SCH (06:10)
[2018-08-18] MEDS: LEVOTHYROXINE NA 150 MCG TABLET PO SCH (06:10)
[2018-08-18 08:53] LABS: BLOOD UREA NITROGEN 8.7 mg/dL (7-18); CALCIUM 8.6 mg/dL (8.5-10.1); POTASSIUM 4.2 mmol/L (3.5-5.1)
[2018-08-18 08:56] LABS: BASO % 0.5 % (0-2.0); EOS % 0.6 % (0-4.5); HEMATOCRIT 29.3 % (32.4-45.2); HEMOGLOBIN 9.9 GM/dL (10.7-15.3); LYMPH % 19.3 % (8-40); MCH 27.6 pg (25.7-33.7); MCHC 33.7 g/dl (32.0-36.0); MEAN PLT VOLUME 8.6 fl (7.5-11.1); MONO % 7.3 % (3.8-10.2); NEUT % 72.3 % (42.8-82.8); PLATELET COUNT 464 K/MM3 (134-434); RBC 3.57 M/mm3 (3.60-5.2); WHITE BLOOD COUNT 12.8 K/mm3 (4.0-10.0)
[2018-08-18] MEDS: PANTOPRAZOLE 40 MG TABLET (FP) PO SCH (09:21)
[2018-08-18] MEDS: HYDROCHLOROTHIAZIDE 12.5 MG CAPSULE (FP) PO SCH (09:21)
[2018-08-18] MEDS: LISINOPRIL 10 MG TABLET (FP) PO SCH (09:21)
[2018-08-18] MEDS: FENOFIBRIC ACID 135 MG CAP PO SCH (09:21)
--- NOTE | 2018-08-18 10:13 | DS ---
Physical Examination Vital Signs: Vital Signs Temperature 98.0 F 08/18/18 05:00 Pulse Rate 63 08/18/18 05:00 Respiratory Rate 20 08/17/18 23:34 Blood Pressure 112/60 08/18/18 05:00 O2 Sat by Pulse Oximetry (%) 97 08/17/18 21:00 Constitutional: Yes: Well Nourished Eyes: Yes: WNL HENT: Yes: WNL Neck: Yes: WNL Cardiovascular: Yes: WNL Respiratory: Yes: WNL Gastrointestinal: Yes: WNL ...Rectal Exam: Yes: Deferred Renal/: Yes: WNL Breast(s): Yes: WNL Musculoskeletal: Yes: WNL Extremities: Yes: WNL Edema: No Peripheral Pulses WNL: Yes Integumentary: Yes: WNL Neurological: Yes: WNL ...Motor Strength: WNL Psychiatric: Yes: WNL Labs: CBC, BMP 08/18/18 07:44 08/18/18 07:44 Discharge Summary Reason For Visit: MASS OF RIGHT KIDNEY/FEVER/RETROPERITONEAL Current Active Problems Fever (Acute) Retroperitoneal lymphadenopathy (Acute) Right renal mass (Acute) Condition: Fair - Instructions Diet, Activity, Other Instructions: stool not loose therefor no c diff stool acepted buy lab dexametasone test don contact preq d/ayala d/c pt today bx of rt kid ? rt adrenal gl ? also asa stopped 5 days than bx to be done appt w co 1100 am cont all tx aqs is at home no new meds Disposition: HOME - Home Medications Comprehensive Discharge Medication List: Ambulatory Orders Fenofibrate Nanocrystallized [Triglide] 160 mg PO DAILY 12/05/16 Levothyroxine [Synthroid -] 150 mcg PO DAILY 12/05/16 Lisinopril/Hydrochlorothiazide [Lisinopril-Hctz 10-12.5 mg Tab] 1 each PO DAILY 12/05/16 Metoprolol Succinate [Toprol XL -] 50 mg PO DAILY 12/05/16 Aspirin [ASA -] 81 mg PO DAILY 08/15/18 Omeprazole 20 mg PO DAILY 08/15/18 Vancomycin HCl [Vancocin HCl] 250 mg PO TID 08/15/18
[2018-08-18 11:20] VITALS: BP 129/63; PULSE 77; TEMP 98.2
== END 2018-08-18 12:21 | disposition home or self-care (01) | DRG 700 ==
LOC: JER 14:30 → JERBED 19:55 → J6S 21:59
PROVIDERS: ADMIT Family Medicine; ATTEND Family Medicine
DX: N28.9 Disorder of kidney and ureter, unspecified (principal); R59.1 Generalized enlarged lymph nodes; I10 Essential (primary) hypertension; E78.5 Hyperlipidemia, unspecified; E03.9 Hypothyroidism, unspecified; J44.9 Chronic obstructive pulmonary disease, unspecified; K21.9 Gastro-esophageal reflux disease without esophagitis; D72.829 Elevated white blood cell count, unspecified; L40.9 Psoriasis, unspecified; F17.210 Nicotine dependence, cigarettes, uncomplicated
CPT/HCPCS: 36415; 71045-TC-FY; 71260-TC; 72193-TC; 74160-TC; 76775-TC; 80048; 80053; 81003; 82024; 82150; 82378; 82533; 82550; 82553; 82803; 83605; 83690; 84443; 84484; 85025; 85610; 85651; 85730; 86140; 86301; 87040; 87086; 90670; 93005; 93010; 99284-25; J7030; J8540

== ENCOUNTER 2018-11-11 15:09 | Inpatient (IN) | payer BC, OTHER | END 2018-11-17 15:29 | disposition home health service (06) | LOC: J6S 11-12 02:43 → JER 15:09 → JERBED 17:08 ==